=== PATIENT | male | born 1930 | race Caucasian/White ===

== ENCOUNTER 2016-10-31 10:50 | Emergency (ER) | payer OTHER ==
--- NOTE | 2016-10-31 11:12 | EDPHY ---
H & P Stated Complaint: "Bubble" on LLE x 6 days;now has pain and infection Time Seen by Provider: 10/31/16 11:11 HPI/ROS: CHIEF COMPLAINT: Blistering erythema to left leg HISTORY OF PRESENT ILLNESS: The patient presents to the ED with progressive blistering erythema to his left leg. The patient has a history of chronic stasis dermatitis following vascular surgery several years ago. The patient does have a history of a superficial ulcer requiring antibiotic treatment he in the past. The patient denies any history of fall or trauma. The patient denies chest pain, dyspnea, fever or other concerns. The patient did see his primary care provider several days ago. Patient is scheduled to see Infectious Disease again is Saturday. Given the progression of the erythema over the past 24 hours the patient decided to seek medical care today. REVIEW OF SYSTEMS: A comprehensive 10 point review of systems is otherwise negative aside from elements mentioned in the history of present illness. Source: Patient Exam Limitations: No limitations - Personal History Current Tetanus Diphtheria and Acellular Pertussis (TDAP): Yes Tetanus Vaccine Date: 2009 - Medical/Surgical History Hx Asthma: No Hx Chronic Respiratory Disease: No Hx Diabetes: No Hx Cardiac Disease: No Hx Renal Disease: No Hx Cirrhosis: No Hx Alcoholism: No Hx HIV/AIDS: No Hx Splenectomy or Spleen Trauma: No Other PMH: Aneurysm repair, small bowel blockage. hospitalized for unknown origin. Prostate. 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 - Social History Smoking Status: Former smoker - Physical Exam Exam: General Appearance: Alert, no distress Eyes: Pupils equal and round no pallor or injection ENT, Mouth: Mucous membranes moist Respiratory: There are no retractions, lungs are clear to auscultation Cardiovascular: Regular rate and rhythm Gastrointestinal: Abdomen is soft and nontender, no masses, bowel sounds normal Neurological: A&O, normal motor function, normal sensory exam, normal cranial nerves Skin: Warm and dry, no rashes Musculoskeletal: Neck is supple nontender Extremities: Bilateral lower extremity edema, erythema noted to the left calf, several blistering lesions noted to the anterior aspect of the calf Psychiatric: Patient is oriented X 3, there is no agitation Constitutional: Initial Vital Signs Temperature (C) 36.7 C 10/31/16 10:51 Heart Rate 60 10/31/16 10:51 Respiratory Rate 18 10/31/16 10:51 Blood Pressure 145/59 H 10/31/16 10:51 O2 Sat (%) 90 L 10/31/16 10:51 O2 Delivery Mode Room Air Allergies/Adverse Reactions: No Known Allergies Allergy (Verified 10/31/16 10:56) Home Medications: Medication Instructions Recorded Atorvastatin Calcium [Lipitor 40 40 mg PO 10/31/16 mg (*)] Cephalexin [Keflex] 500 mg PO QID #28 cap 10/31/16 Clopidogrel Bisulfate [Plavix (*)] 10/31/16 Doxazosin Mesylate [Cardura 4 MG 4 mg PO DAILY 10/31/16 (*)] Medical Decision Making - Diagnostics Imaging: Left lower extremity ultrasound: Negative for DVT, localized fluid collection or other acute finding. Images reviewed by myself and discussed with radiologist. ED Course/Re-evaluation: The patient presents to the ED with findings consistent with a streptococcal cellulitis involving the lower extremity. The patient has no evidence of sepsis , fever or significant leukocytosis. Ultrasound of lower extremity demonstrates no evidence of a DVT. The patient did have an IV established and received 1 g of IV ceftriaxone. Curbside consultation was made with Dr. Ronda Blanchard from Infectious Disease. The patient will be discharged home with a prescription for Keflex and follow up with Dr. Jamie Stanton as scheduled this Saturday. The patient understands to return to the ED for markedly worsening symptoms, high fever, lightheadedness or other concerns. Differential Diagnosis: Differential diagnosis considered includes cellulitis, DVT, necrotizing fasciitis, abscess - Data Points Laboratory Results: Laboratory Results 10/31/16 11:24 10/31/16 11:24 10/31/16 10/31/16 11:24 11:24 WBC 8.05 10^3/uL 10^3/uL (3.80-9.50) RBC 5.09 10^6/uL 10^6/uL (4.40-6.38) Hgb 16.0 g/dL g/dL (13.7-17.5) Hct 47.5 % % (40.0-51.0) MCV 93.3 fL fL (81.5-99.8) MCH 31.4 pg pg (27.9-34.1) MCHC 33.7 g/dL g/dL (32.4-36.7) RDW 13.2 % % (11.5-15.2) Plt Count 184 10^3/uL 10^3/uL (150-400) MPV 10.4 fL fL (8.7-11.7) Neut % (Auto) 66.9 % % (39.3-74.2) Lymph % (Auto) 14.7 % L % (15.0-45.0) [place] % (Auto) 13.5 % H % (4.5-13.0) Eos % (Auto) 3.9 % % (0.6-7.6) Baso % (Auto) 0.6 % % (0.3-1.7) Nucleat RBC Rel Count 0.0 % % (0.0-0.2) Absolute Neuts (auto) 5.39 10^3/uL 10^3/uL (1.70-6.50) Absolute Lymphs (auto) 1.18 10^3/uL 10^3/uL (1.00-3.00) Absolute Monos (auto) 1.09 10^3/uL H 10^3/uL (0.30-0.80) Absolute Eos (auto) 0.31 10^3/uL 10^3/uL (0.03-0.40) Absolute Basos (auto) 0.05 10^3/uL 10^3/uL (0.02-0.10) Absolute Nucleated RBC 0.00 10^3/uL 10^3/uL (0-0.01) Immature Gran % 0.4 % % (0.0-1.1) Immature Gran # 0.03 10^3/uL 10^3/uL (0.00-0.10) Sodium 139 mEq/L mEq/L (134-144) Potassium 4.3 mEq/L mEq/L (3.5-5.2) Chloride 106 mEq/L mEq/L (97-110) Carbon Dioxide 27 mEq/l mEq/l (22-31) Anion Gap 6 mEq/L L mEq/L (8-16) BUN 20 mg/dL mg/dL (7-23) Creatinine 0.9 mg/dL mg/dL (0.7-1.3) Estimated GFR > 60 Glucose 150 mg/dL H mg/dL (70-100) Calcium 9.0 mg/dL mg/dL (8.5-10.4) Departure - Departure Disposition: Home, Routine, Self-Care Clinical Impression: Left leg cellulitis Condition: Good Instructions: Cellulitis (ED) Additional Instructions: 1. Please take antibiotics as directed for next week. 2. Please follow up with infectious disease as scheduled on Saturday. 3. Please return to the ED for markedly worsening symptoms or other concerns. Referrals: Lilo Peralta MD [Primary Care Provider] - As per Instructions
[2016-10-31 11:40] LABS: % IMMATURE GRANULYOCYTES 0.4 % (0.0-1.1); ABSOLUTE IMMATURE GRANULOCYTES 0.03 10^3/uL (0.00-0.10); ADD DIFF? NO; ADD MORPH? NO; ADD SCAN? NO; ATYPICAL LYMPHOCYTE FLAG 10 (0-99); FRAGMENT RBC FLAG 0 (0-99); HEMATOCRIT 47.5 % (40.0-51.0); LEFT SHIFT FLG 0 (0-99); LIPEMIA HEMOLYSIS FLAG 80 (0-99); MEAN CELL HEMOGLOBIN 31.4 pg (27.9-34.1); MEAN CELL HEMOGLOBIN CONCENTR. 33.7 g/dL (32.4-36.7); MEAN CELL VOLUME 93.3 fL (81.5-99.8); MEAN PLATELET VOLUME 10.4 fL (8.7-11.7); PLATELET CLUMPS FLAG 0 (0-99); PLATELET COUNT 184 10^3/uL (150-400); RED BLOOD CELL COUNT 5.09 10^6/uL (4.40-6.38); RED CELL DISTRIBUTION WIDTH 13.2 % (11.5-15.2)
[2016-10-31 12:06] LABS: ANION GAP 6 mEq/L (8-16); CARBON DIOXIDE 27 mEq/l (22-31); CHLORIDE 106 mEq/L (97-110); CREATININE 0.9 mg/dL (0.7-1.3); GLOMERULAR FILTRATION RATE > 60; GLUCOSE 150 mg/dL (70-100); POTASSIUM 4.3 mEq/L (3.5-5.2); SODIUM 139 mEq/L (134-144)
[2016-10-31] MEDS ORDERED: IBUPROFEN 600 MG TAB PO ONE (12:49)
[2016-10-31 13:00] VITALS: BP 130/78; PULSE 78; RESP 14; TEMP 98.2; O2SAT 94
== END 2016-10-31 12:59 | disposition home or self-care (01) ==
DX: L03.116 Cellulitis of left lower limb (principal); Z87.891 Personal history of nicotine dependence
CPT/HCPCS: 96365; J0696

== ENCOUNTER → 2017-04-04 | Outpatient (CLI) | payer OTHER ==
[~2017-04-04] MED LIST: IOPAMIDOL (ISOVUE 370) 100 ML BTL IV ONE
== END ==
LOC: CIMAGING 08:19
PROVIDERS: ATTEND Internal Medicine Cardiovascular Disease
CPT/HCPCS: 71275-PO; 74175-PO; Q9967

== ENCOUNTER 2017-07-19 14:10 | Inpatient (IN) | payer OTHER ==
--- NOTE | 2017-07-19 14:17 | EDPHY ---
H & P Time Seen by Provider: 07/19/17 14:16 - Personal History Tetanus Vaccine Date: 2009 - Medical/Surgical History Hx Asthma: No Hx Chronic Respiratory Disease: No Hx Diabetes: No Hx Cardiac Disease: No Hx Renal Disease: No Hx Cirrhosis: No Hx Alcoholism: No Hx HIV/AIDS: No Hx Splenectomy or Spleen Trauma: No Other PMH: Aneurysm repair, small bowel blockage. hospitalized for unknown origin. Prostate. 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 - Social History Smoking Status: Former smoker Constitutional: Initial Vital Signs Temperature (C) 36.5 C 07/19/17 14:10 Heart Rate 35 L 07/19/17 14:10 Respiratory Rate 12 07/19/17 14:10 Blood Pressure 210/90 H 07/19/17 14:10 O2 Sat (%) 96 07/19/17 14:10 O2 Delivery Mode Room Air O2 (L/minute) 2 Allergies/Adverse Reactions: No Known Allergies Allergy (Verified 10/31/16 10:56) Home Medications: Medication Instructions Recorded Atorvastatin Calcium [Lipitor 40 40 mg PO 10/31/16 mg (*)] Doxazosin Mesylate [Cardura 4 MG 4 mg PO DAILY 10/31/16 (*)] Acetaminophen [Tylenol 325mg (*)] 325 mg PO Q6 PRN 07/19/17 Aspirin EC [Aspirin EC 81 mg (*)] 81 mg PO HS 07/19/17 Bisacodyl [Dulcolax] 5 mg PO DAILY 07/19/17 Cholecalciferol Vit D3 [Vitamin D3 5,000 units PO DAILY 07/19/17 (*)] Medical Decision Making ED Course/Re-evaluation: CHIEF COMPLAINT: Bradycardia, lethargy HISTORY OF PRESENT ILLNESS: The patient is an 87 y/o male arriving via EMS arriving from [facility] with bradycardia around 30 and fatigue for the last 10 days. He has noticed increased lethargy and dyspnea when walking up stairs. He has never had these symptoms previously. He denies lightheadedness, confusion , headache, chest pain, fever, or other complaints. REVIEW OF SYSTEMS: A 10 point review of systems was performed and is negative with the exception of the elements mentioned in the history of present illness. PHYSICAL EXAM: HR, BP, O2 Sat, RR. Temp noted General Appearance: Alert, well hydrated, appropriate, and non-toxic appearing. Head: Atraumatic without scalp tenderness or obvious injury Eyes: Pupils equal, round, reactive to light and accommodation, EOMI, no trauma , no injection. Nose: Atraumatic, no rhinorrhea, clear. Throat: Mucus membranes moist. Neck: Supple, nontender, no lymphadenopathy. Respiratory: No retractions, no distress, no wheezes, and no accessory muscle use. Lungs are clear to auscultation bilaterally. Cardiovascular: Bradycardic rate and rhythm, no murmurs, rubs, or gallops. Good capillary refill all extremities. Gastrointestinal: Abdomen is soft, nontender, non-distended, no masses, no rebound, no guarding, no peritoneal signs. Musculoskeletal: Normal active ROM of all extremities, atraumatic. Neurological: Alert, appropriate, and interactive. The patient has non-focal cranial nerves, motor, sensory, and cerebellar exam. Skin: No rashes, good turgor, no nodules on palpation. 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 See hard copy and/or "tracemaster" electronic copy for interpretation. DIFFERENTIAL DIAGNOSIS: The differential diagnosis for the patient's lethargy included but was not limited to heart block, junctional escape rhythm, myocardial infarction, conduction abnormality, sick sinus syndrome, AV chaz conduction abnormalities, myocarditis, pericarditis. MEDICAL DECISION MAKING: This is an 87 y/o male who presents with notable bradycardia around 30 and a 10- day history of fatigue and lethargy. He is stable upon arrival here and mentating appropriately. Pacer pads placed. Plan for IV, labs, EKG, and admission. Consulted with Dr. Rao. He will follow patient's admission. Patient remains hemodynamically stable. - Data Points Laboratory Results: Laboratory Results 07/19/17 14:20 07/19/17 14:20 07/19/17 07/19/17 07/19/17 14:20 14:20 14:20 WBC RBC Hgb POC Hgb 15.3 gm/dL gm/dL (13.7-17.5) Hct POC Hct 45 % % (40-51) MCV MCH MCHC RDW Plt Count MPV Neut % (Auto) Lymph % (Auto) [place] % (Auto) Eos % (Auto) Baso % (Auto) Nucleat RBC Rel Count Absolute Neuts (auto) Absolute Lymphs (auto) Absolute Monos (auto) Absolute Eos (auto) Absolute Basos (auto) Absolute Nucleated RBC Immature Gran % Immature Gran # PT 15.4 SEC H SEC (12.0-15.0) INR 1.22 H (0.83-1.16) APTT 29.8 SEC SEC (23.0-38.0) POC Sodium 142 mEq/L mEq/L (134-144) Sodium 142 mEq/L mEq/L (134-144) POC Potassium 4.9 mEq/L mEq/L (3.3-5.0) Potassium 5.2 mEq/L mEq/L (3.5-5.2) POC Chloride 107 mEq/L mEq/L (97-110) Chloride 106 mEq/L mEq/L (97-110) Carbon Dioxide 24 mEq/l mEq/l (22-31) Anion Gap 12 mEq/L mEq/L (8-16) POC BUN 33 mg/dL H mg/dL (7-23) BUN 34 mg/dL H mg/dL (7-23) Creatinine 1.4 mg/dL H mg/dL (0.7-1.3) POC Creatinine 1.7 mg/dL H mg/dL (0.7-1.3) Estimated GFR 48 Glucose 83 mg/dL mg/dL (70-100) POC Glucose 89 mg/dL mg/dL (70-100) Calcium 9.0 mg/dL mg/dL (8.5-10.4) Magnesium 2.4 mg/dL H mg/dL (1.6-2.3) Troponin I 0.026 ng/mL ng/mL (0.000-0.034) NT-Pro-B Natriuret Pep 2690 pg/mL H pg/mL (0-450) 07/19/17 14:20 WBC 7.32 10^3/uL 10^3/uL (3.80-9.50) RBC 4.79 10^6/uL 10^6/uL (4.40-6.38) Hgb 15.1 g/dL g/dL (13.7-17.5) POC Hgb Hct 44.9 % % (40.0-51.0) POC Hct MCV 93.7 fL fL (81.5-99.8) MCH 31.5 pg pg (27.9-34.1) MCHC 33.6 g/dL g/dL (32.4-36.7) RDW 13.9 % % (11.5-15.2) Plt Count 141 10^3/uL L 10^3/uL (150-400) MPV 11.7 fL fL (8.7-11.7) Neut % (Auto) 60.8 % % (39.3-74.2) Lymph % (Auto) 17.5 % % (15.0-45.0) [place] % (Auto) 17.1 % H % (4.5-13.0) Eos % (Auto) 3.8 % % (0.6-7.6) Baso % (Auto) 0.5 % % (0.3-1.7) Nucleat RBC Rel Count 0.0 % % (0.0-0.2) Absolute Neuts (auto) 4.45 10^3/uL 10^3/uL (1.70-6.50) Absolute Lymphs (auto) 1.28 10^3/uL 10^3/uL (1.00-3.00) Absolute Monos (auto) 1.25 10^3/uL H 10^3/uL (0.30-0.80) Absolute Eos (auto) 0.28 10^3/uL 10^3/uL (0.03-0.40) Absolute Basos (auto) 0.04 10^3/uL 10^3/uL (0.02-0.10) Absolute Nucleated RBC 0.00 10^3/uL 10^3/uL (0-0.01) Immature Gran % 0.3 % % (0.0-1.1) Immature Gran # 0.02 10^3/uL 10^3/uL (0.00-0.10) PT INR APTT POC Sodium Sodium POC Potassium Potassium POC Chloride Chloride Carbon Dioxide Anion Gap POC BUN BUN Creatinine POC Creatinine Estimated GFR Glucose POC Glucose Calcium Magnesium Troponin I NT-Pro-B Natriuret Pep Point of Care Test Results: 07/19/17 14:20 POC Sodium 142 POC Potassium 4.9 POC Chloride 107 POC BUN 33 H POC Creatinine 1.7 H POC Glucose 89 Departure - Departure Disposition: Home, Routine, Self-Care Referrals: Lilo Peralta MD [Primary Care Provider] - As per Instructions Report Scribed for: Jamie May Report Scribed by: Bridget Dolan Date of Report: 07/19/17 Time of Report: 14:21
--- NOTE | 2017-07-19 14:23 | CPEKG ---
Heart Rate: 27 RR Interval: 2222 QRSD Interval: 134 QT Interval: 620 QTC Interval: 416 QRS [place]: -44 T Wave [place]: 28 EKG Severity - ABNORMAL ECG - EKG Impression: JUNCTIONAL ESCAPE RHYTHM EKG Impression: RBBB AND LAFB Electronically Signed By: Jamie May 20-Jul-2017 21:55:13
[2017-07-19 14:33] LABS: % IMMATURE GRANULYOCYTES 0.3 % (0.0-1.1); ABSOLUTE IMMATURE GRANULOCYTES 0.02 10^3/uL (0.00-0.10); ADD DIFF? NO; ADD MORPH? NO; ADD SCAN? NO; ATYPICAL LYMPHOCYTE FLAG 0 (0-99); FRAGMENT RBC FLAG 0 (0-99); HEMATOCRIT 44.9 % (40.0-51.0); HEMOGLOBIN 15.1 g/dL (13.7-17.5); LEFT SHIFT FLG 0 (0-99); LIPEMIA HEMOLYSIS FLAG 80 (0-99); MEAN CELL HEMOGLOBIN 31.5 pg (27.9-34.1); MEAN CELL HEMOGLOBIN CONCENTR. 33.6 g/dL (32.4-36.7); MEAN CELL VOLUME 93.7 fL (81.5-99.8); MEAN PLATELET VOLUME 11.7 fL (8.7-11.7); PLATELET CLUMPS FLAG 10 (0-99); PLATELET COUNT 141 10^3/uL (150-400); RED BLOOD CELL COUNT 4.79 10^6/uL (4.40-6.38); RED CELL DISTRIBUTION WIDTH 13.9 % (11.5-15.2)
[2017-07-19 14:41] LABS: APTT 29.8 SEC (23.0-38.0); INR 1.22 (0.83-1.16); PROTIME(PATIENT) 15.4 SEC (12.0-15.0)
[2017-07-19 14:51] LABS: ANION GAP 12 mEq/L (8-16); CARBON DIOXIDE 24 mEq/l (22-31); CHLORIDE 106 mEq/L (97-110); CREATININE 1.4 mg/dL (0.7-1.3); GLOMERULAR FILTRATION RATE 48; GLUCOSE 83 mg/dL (70-100); MAGNESIUM 2.4 mg/dL (1.6-2.3); POTASSIUM 5.2 mEq/L (3.5-5.2); SODIUM 142 mEq/L (134-144)
[2017-07-19 15:01] LABS: TROPONIN I 0.026 ng/mL (0.000-0.034)
[2017-07-19] MEDS ORDERED: ONDANSETRON 4 MG/2 ML VIAL IVP PRN (15:17)
[2017-07-19] MEDS ORDERED: ONDANSETRON DISINTEGRATING 4 MG TAB PO PRN (15:17)
[2017-07-19] MEDS ORDERED: BACITRACIN IRRIGATION/NS 50,000 UNITS/1,000 ML BTL IRR ONE ×2 (15:40→15:41)
[2017-07-19] MEDS ORDERED: ceFAZolin 2 GM/SWFI 2 GM/20 ML SYR IVP ONE ×2 (15:40→15:41)
[2017-07-19] MEDS ORDERED: NS 1,000 ML IV ONE ×2 (15:40→15:41)
--- NOTE | 2017-07-19 16:07 | GHP ---
[f rep st] HISTORY AND PHYSICAL DATE OF ADMISSION: 07/19/2017 HISTORY OF PRESENT ILLNESS: The patient is a pleasant 87-year-old gentleman with a history of hypert ension, and BPH, as well as some lower extremity wounds, who presents with 10 days of lethargy, and g eneralized weakness, and lightheadedness. His has noted some increased lower extremity edema. He was actually seen in our cardiology clinic and referred here, as an EKG showed complete heart bloc k. The patient has not had falls. He has not had chest pain, fever, chills, sputum. He has been followed in the wound clinic for his lower extremity wounds, which have healed nicely. Timothy barone has not had fever. REVIEW OF SYSTEMS: A complete 10-point review of systems conducted and negative except as noted in t he HPI. PAST MEDICAL HISTORY: 1. Hypertension. 2. BPH. 3. Possible sick sinus syndrome. 4. Abdominal aortic aneurysm. 5. Status post endoluminal graft. 6. Hyperlipidemia. ALLERGIES: No known drug allergies. HOME MEDICATIONS: Atorvastatin, doxazosin, Dulcolax, aspirin. SOCIAL HISTORY: No tobacco, no alcohol. 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 PHYSICAL EXAMINATION: VITAL SIGNS: Temp 36.5, blood pressure 210/90, pulse 26 to 35, breathing 12 t imes a minute, 96% on 2 L. GENERAL: In no acute distress. HEENT: Sclerae anicteric. Oropharynx c lear. Mucous membranes moist. NECK: Supple without lymphadenopathy or JVD. LUNGS: Clear to auscu ltation bilaterally. HEART: S1, S2, profoundly bradycardic. There is no systolic murmur. ABDOMEN: Soft, nontender, nondistended. LOWER EXTREMITIES: Show 3+ edema bilaterally. Calves are nontende r. SKIN: Shows his wound is essentially healed on his right anterior carrington. There is no lymphangitic streaking . NEUROLOGIC: Nonfocal. The patient is a bit confused, I have taken care of him on previous admiss ions, but he certainly mentating, alert and conversant. LABS: His white count is 7.3, hematocrit 45, platelets are 141,000. INR is 1.2. Sodium 142, potass ium 5.2, chloride 106, bicarb 24, BUN 34, creatinine 1.4. His baseline is 0.9. Troponin is 0.026. Magnesium is elevated at 2.4. BNP is 2690, this is higher, his baseline is about 1000. EKG, interpreted by me, shows complete heart block with a ventricular rate of 27. There is normal ax is. There is no ST or T-wave changes. I discussed the case Dr. Bertrand Rao, and Dr. Jamie May. ASSESSMENT/PLAN: An 87-year-old gentleman with complete heart block. 1. Complete heart block. Patient warrants a pacer, he is currently hemodynamically stable, is plann ed at 6:30. 2. Anterior carrington wound. This does not look infected, it looks healed, this is not a contraindicatio n to pacer placement. 3. Abdominal aortic aneurysm. We will follow. 4. Hypertension, this is likely response to his complete heart block. 5. Acute kidney injury, this is secondary to poor cardiac output. We will follow. 6. Disposition: Inpatient status. 7. Prophylaxis: We will use SCDs for now, given his need for pacer placement. /[id number]/MODL
[2017-07-19] MEDS ORDERED: IOPAMIDOL (ISOVUE-300) 100 ML BTL ONE (16:10)
[2017-07-19] MEDS ORDERED: LIDOCAINE 1% 300 MG/30 ML SDV ONE (17:50)
[2017-07-19] MEDS ORDERED: fentaNYL 100 MCG/2 ML INJ ONE (17:50)
[2017-07-19] MEDS ORDERED: MIDAZOLAM 2 MG/2 ML VIAL ONE (17:50)
[2017-07-19] MEDS ORDERED: BUPIVACAINE 0.5% 30 ML SDV ONE (17:51)
[2017-07-19] MEDS ORDERED: LIDO/EPI 1% **for epidural** 30 ML SDV ONE (17:51)
--- NOTE | 2017-07-19 17:52 | PDMN ---
Medical Necessity Medical necessity: M510 supraventricular arrhythmias -arrhythmias causing sig. symptoms -bradycardia HR 35,26,34, 38 EKG shows complete heart block, ... lethargy, weakness, lightheadedness, lower extremity edema, hx of HTN, BPH, poss. SSS, AAA, S/P endoluminal graft. hyperlipidemia
--- NOTE | 2017-07-19 18:03 | PDPROPOC ---
Sedation Plan of Care Sedation Plan of Care: vital signs stable, mental status noted, patient educated of risks, benefits, alternatives, patient can tolerate sedation ASA Classification: ASA 2 Mallampati Score: Class 2 Mallampati Reference Image: Patient passed 3-3-2 rule?: Yes
--- NOTE | 2017-07-19 18:03 | PDHPUP ---
History & Physical Update H&P update statement: This history and physical update is based on an assessment of the patient which was completed after admission or registration (within 24 hours), but prior to the surgery/procedure. H&P update: H&P reviewed & patient examined, no change in patient's condition since H&P completed (Risks and benfits discussed. Will proceed.)
--- NOTE | 2017-07-19 19:09 | PDCTREPORT ---
Cardiothoracic Procedure Rpt Cardiothoracic Procedure Report: Procedure: Insertion of a dual-chamber permanent pacemaker. MRI compatible due to need for yearly MRIs for endo grafts. Indication: Complete heart block symptomatic with ventricular escape of 25 beats per minute. After obtaining informed consent patient was brought to the cardiac catheterization lab in the fasting state. The left subclavian fossa was sterilely prepped and draped. Subclavian venogram was performed revealing a widely patent vein. Using a 10 blade an incision was made below the clavicle. Using a combination of sharp and blunt dissection and the Bovie catheter pacemaker pocket was created. Bacitracin soaked sponge was placed in the pocket. Using 18 gauge percutaneous needle guidewires were advanced into the right heart x2. Using an 8 [place] safety sheath lead was placed in the right ventricular apex. The sheath was torn away. Appropriate sensitivities and thresholds were confirmed. The lead was secured to the fascia using 0 Ethibond x2. Using a 6 [place] safety sheath lead was advanced into the right atrial appendage. Sheath was torn away. Appropriate sensitivities and thresholds were confirmed. The lead was secured to the fascia using 0 Ethibond x2. Bacitracin soaked sponge was removed from the pocket. The pocket was copiously irrigated with bacitracin solution. The generator was delivered to the field. Leads were attached to the generator confirming serial numbers. Setscrews were tightened per industry standards. The entire system was coiled into the pocket and checked under fluoroscopy. 3 layer closure was performed using 2 0 and 3 0 Ethibond. Strata Fix suture was used to close the skin. Pressure dressing was applied the patient is taken to recovery for continued care. Underlying rhythm: Third-degree heart block with AV dissociation. The device is an [employer]ipping model number p.m. 2272. Serial 7. [id number]. Right atrial lead is a tendril MRI L PDA 1200M/46. Serial number [id number] Ventricular lead is a tendril MRI LPA 1200M/52. Serial number [id number] Right atrial sensing was 2.7 mV. Atrial capture was 0.4 volts at 0.5 milliseconds. Impedance was 472 Ohms. Right ventricular sensing was not performed due to lack of QRS complexes. Capture was at 0.5 volts at 0.5 milliseconds. Impedance was 658 Ohms. There was no phrenic nerve stimulation at 10 volts. Conclusions: Complete heart block status post implantation of a dual-chamber MRI compatible pacemaker. Patient Problems: Problems Problem Status Onset Complete heart block Acute Urinary tract infectious disease Active
[2017-07-19] MEDS ORDERED: METOPROLOL TARTRATE 5 MG/5 ML INJ ONE (19:13)
[2017-07-19] MEDS: amLODIPine BESYLATE 5 MG TAB PO SCH (20:44)
--- NOTE | 2017-07-19 20:53 | CPEKG ---
Heart Rate: 60 RR Interval: 1000 P-R Interval: 172 QRSD Interval: 158 QT Interval: 492 QTC Interval: 492 P [place]: 38 QRS [place]: -72 T Wave [place]: 86 EKG Severity - ABNORMAL ECG - EKG Impression: ATRIAL-VENTRICULAR DUAL-PACED RHYTHM Electronically Signed By: Jose Suarez 20-Jul-2017 10:16:35
[2017-07-20 05:06] LABS: % IMMATURE GRANULYOCYTES 0.3 % (0.0-1.1); ABSOLUTE IMMATURE GRANULOCYTES 0.03 10^3/uL (0.00-0.10); ADD DIFF? NO; ADD MORPH? NO; ADD SCAN? NO; ATYPICAL LYMPHOCYTE FLAG 0 (0-99); FRAGMENT RBC FLAG 0 (0-99); HEMATOCRIT 42.9 % (40.0-51.0); HEMOGLOBIN 14.5 g/dL (13.7-17.5); LEFT SHIFT FLG 0 (0-99); LIPEMIA HEMOLYSIS FLAG 90 (0-99); MEAN CELL HEMOGLOBIN 31.6 pg (27.9-34.1); MEAN CELL HEMOGLOBIN CONCENTR. 33.8 g/dL (32.4-36.7); MEAN CELL VOLUME 93.5 fL (81.5-99.8); MEAN PLATELET VOLUME 11.7 fL (8.7-11.7); PLATELET CLUMPS FLAG 0 (0-99); PLATELET COUNT 132 10^3/uL (150-400); RED BLOOD CELL COUNT 4.59 10^6/uL (4.40-6.38); RED CELL DISTRIBUTION WIDTH 13.8 % (11.5-15.2)
[2017-07-20] MEDS: ACETAMINOPHEN 325 MG TAB PO PRN ×2 (05:06→20:24)
[2017-07-20 06:19] LABS: ANION GAP 7 mEq/L (8-16); CALCIUM 8.3 mg/dL (8.5-10.4); CARBON DIOXIDE 23 mEq/l (22-31); CHLORIDE 109 mEq/L (97-110); CREATININE 1.1 mg/dL (0.7-1.3); GLOMERULAR FILTRATION RATE > 60; GLUCOSE 88 mg/dL (70-100); POTASSIUM 4.4 mEq/L (3.5-5.2); SODIUM 139 mEq/L (134-144)
[2017-07-20] MEDS: CHOLECALCIFEROL VIT D3 2,000 UNITS TAB/CAP PO SCH (07:59)
[2017-07-20] MEDS: amLODIPine BESYLATE 5 MG TAB PO SCH ×2 (08:00→08:01)
[2017-07-20] MEDS: ATORVASTATIN CALCIUM 40 MG TAB PO SCH (08:01)
[2017-07-20] MEDS: DOXAZOSIN MESYLATE 4 MG TAB PO SCH (08:01)
[2017-07-20] MEDS: BISACODYL 5 MG EC TAB PO SCH (08:07)
--- NOTE | 2017-07-20 09:40 | CPEKG ---
Heart Rate: 60 RR Interval: 1000 P-R Interval: 204 QRSD Interval: 156 QT Interval: 492 QTC Interval: 492 P [place]: 0 QRS [place]: -72 T Wave [place]: 94 EKG Severity - ABNORMAL ECG - EKG Impression: Paced heart rhythm Electronically Signed By: Jose Suarez 20-Jul-2017 10:16:30
--- NOTE | 2017-07-20 09:44 | ASMTCASEMG ---
Living Arrangements What is your living Answers: With Spouse arrangement? Who do you live with? Type Of Residence What kind of residence do Answers: House you live in? Discharge Plan Comments Coordination Status Comments Notes: Pt is a 87 y/o man admitted w/ generalized weakness, lightheadedness and lower extremity edema. Pt is day 1 post op from having a pacemaker placed. PT and OT have been ordered and awaiting recommendations. Needs are TBD at this time. CM to follow. Date Signed: 07/20/2017 09:44 AM Electronically Signed By:IRENE Sauceda
[2017-07-20] MEDS ORDERED: FUROSEMIDE 40 MG/4 ML VIAL IVP ONE (10:32)
--- NOTE | 2017-07-20 10:45 | PDCARPN ---
Cardiology Progress Note Chief Complaint: CHB Assessment/Plan: Assessment: 87 y/o M PMH AAA s/p repair 2002, listed h/o TIA, htn, dyslipidemia. Admitted from clinic after being found to be in CHB HR 28. 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 #. CHB: s/p dual chamber ppm #. CHF: as evidenced by severe peripheral edema, small bilateral pleural effusions, abdominal distention symptomatically was able to bike up until 1 week ago and now cannot climb stairs in home without dyspnea likely worsened by loss of cardiac output with CHB will obtain echo and start on IV lasix #. AAA: remote s/p repair continue statin and ASA #. LOS: admit to inpt status due to need to start IV lasix will obtain PT/OT for home needs/safety #. DVT ppx: defer chemoprophylaxis with recent pacer will order compressive stockings today Plan: Echo IV lasix 07/20/17 10:35 Subjective: Insertion of PPM 07/19 after presenting to office LH and HR 28 with CHB. Not noting pain at pacer site. Has noted at least 1 week of worsening dyspnea with decrease in exercise tolerance. Did have LLE wound that has healed with wound clinic. Was advised to start wearing compressive stockings. No cp, pnd/ orthopnea. Reviewed/Discussed With: family, other (Dr. Ramirez) Objective: Vital Signs (8 Hrs) Temp Pulse Resp BP Pulse Ox 07/20/17 08:01 152/56 H 07/20/17 08:00 152/56 H 07/20/17 07:51 98.2 F 60 27 H 152/56 H 93 07/20/17 05:00 60 20 148/64 H 96 Intake/Output (24 Hrs) 07/19/17 07/20/17 07/21/17 05:59 05:59 05:59 Intake Total 400 Output Total 600 Balance -200 Intake: Oral (ml) 200 IV Intake (ml) 200 Output: Urine (ml) 600 Urinal 600 Other: Weight 88.451 kg 88.451 kg Number of Voids Urinal 1 Number of Stools Urinal 1 Result Diagrams: 07/20/17 04:50 07/20/17 04:56 Cardiac Labs: Laboratory Tests 07/19/17 14:20 NT-Pro-B Natriuret Pep 2690 H EKG: V-paced rhythm Telemetry: Paced Echocardiogram: Last echo from 03/23 from office reviewed: EF 60, DD, mild AR/TR, RVSP 35 - Physical Exam Constitutional: no apparent distress Eyes: anicteric sclera Ears, Nose, Mouth, Throat: moist mucous membranes Cardiovascular: regular rate and rhythm Respiratory: reduced air movement, other (crackles in bases) Gastrointestinal: normoactive bowel sounds, other (distended) Skin: warm, other (severe edema bilateral legs and L hand) Neurologic: AAOx3 Psychiatric: cooperative, interactive ICD10 Worksheet Patient Problems: Problems Problem Status Onset Complete heart block Acute Urinary tract infectious disease Active
--- NOTE | 2017-07-20 12:05 | HOSPPROG ---
Hospitalist Progress Note Assessment/Plan: New patient encounter 87 y/o M PMH AAA s/p repair 2002, TIA, htn, dyslipidemia. Admitted from clinic with CHB, now s/p pacemaker. He has e/o of CHF exacerbation and has been started on IV Lasix. # CHB: s/p dual chamber ppm # CHF-E -TTE -IV Lasix #HTN #AAA, s/p endoluminal graft -Statin -ASA #RAMONA, resolved #weakness and deconditioning -PT/OT DVT proph: SCD's Dispo: keep inpatient Subjective: Has significant pedal edema. S/p PPM. Doing well postoperatively. Objective: Vital Signs Temp Pulse Resp BP Pulse Ox 36.4 C 60 19 131/61 H 91 L 07/20/17 11:48 07/20/17 11:48 07/20/17 11:48 07/20/17 11:48 07/20/17 11:48 Laboratory Results 07/20/17 04:50 07/20/17 04:56 07/19/17 07/20/17 07/21/17 05:59 05:59 05:59 Intake Total 400 Output Total 600 Balance -200 PT 15.4 SEC (12.0-15.0) H 07/19/17 14:20 INR 1.22 (0.83-1.16) H 07/19/17 14:20 - Physical Exam Constitutional: no apparent distress, appears nourished Eyes: PERRL Ears, Nose, Mouth, Throat: moist mucous membranes, hearing normal Cardiovascular: regular rate and rhythym, edema Respiratory: no respiratory distress Gastrointestinal: normoactive bowel sounds, soft, non-tender abdomen Skin: warm Neurologic: AAOx3 Psychiatric: interacting appropriately, not anxious, not encephalopathic ICD10 Worksheet Patient Problems: Problems Problem Status Onset Complete heart block Acute Urinary tract infectious disease Active
[2017-07-20] MEDS: FUROSEMIDE 40 MG/4 ML VIAL IVP SCH (15:26)
[2017-07-21 05:36] LABS: ANION GAP 10 mEq/L (8-16); CALCIUM 8.3 mg/dL (8.5-10.4); CARBON DIOXIDE 25 mEq/l (22-31); CHLORIDE 105 mEq/L (97-110); GLOMERULAR FILTRATION RATE > 60; GLUCOSE 92 mg/dL (70-100); POTASSIUM 3.9 mEq/L (3.5-5.2); SODIUM 140 mEq/L (134-144)
[2017-07-21] MEDS: ACETAMINOPHEN 325 MG TAB PO PRN ×2 (05:51→21:10)
[2017-07-21] MEDS: BISACODYL 5 MG EC TAB PO SCH (07:52)
[2017-07-21] MEDS: ATORVASTATIN CALCIUM 40 MG TAB PO SCH (07:52)
[2017-07-21] MEDS: CHOLECALCIFEROL VIT D3 2,000 UNITS TAB/CAP PO SCH (07:52)
[2017-07-21] MEDS: FUROSEMIDE 40 MG/4 ML VIAL IVP SCH ×2 (07:53→14:42)
[2017-07-21] MEDS: DOXAZOSIN MESYLATE 4 MG TAB PO SCH (07:53)
[2017-07-21] MEDS: amLODIPine BESYLATE 5 MG TAB PO SCH (07:53)
--- NOTE | 2017-07-21 10:20 | PDCARPN ---
Cardiology Progress Note Assessment/Plan: Assessment/plan: 87-year-old male with history of hypertension, peripheral vascular disease status post remote endovascular repair of abdominal aortic aneurysm admitted from clinic with complete heart block and ventricular response in the 20s. Status post urgent dual-chamber pacemaker placement on July 19. He feels significantly better with pacing and diuresis. He was in diastolic heart failure, likely triggered by bradycardia and AV dyssynchrony. He was also quite hypertensive upon admission. This has improved. 1. Complete heart block: Status post pacemaker. Pacer interrogation and postprocedure chest x-ray showed normal device placement and function. He will be enrolled in our Outpatient device Clinic. Pacemaker precautions reviewed with the patient and his family. 2. Heart failure with preserved ejection fraction: He has had greater than 2 L diuresis overnight with IV Lasix. Continue this today, likely switch to oral tomorrow. This was triggered by his profound bradycardia/AV synchrony, and admission hypertension. 3. Hypertension: Improved with the diuresis. I have stopped his amlodipine and started low-dose beta-blockers, as I think the amlodipine will contribute to his chronic lower extremity edema. Continue diuresis. 4. Vascular disease: History of AAA repair and mild dilation of the ascending aorta. Restart aspirin. Continue statin. On his 2014 echo he did have ascending aortic dilation of 4.1 cm. This was not well visualized on today's echocardiogram. Consider repeat study as an outpatient. 5. Acute kidney injury upon admission. Creatinine has improved from 1.4-1. This was likely due to low cardiac output in the setting of his complete heart block. Follow up closely in the setting of diuresis. This is why I have not chosen an Loki inhibitor for his hypertension. 6. DVT Prophylaxis: He is safe to start prophylactic dose Lovenox. 07/21/17 10:33 Subjective: Bertrand feels much better. He does not have significant discomfort at the site of his pacemaker insertion. No angina. No dyspnea at rest. He was mildly dyspneic after his walk this morning. He was not lightheaded exertion. Lower extremity edema is slightly improved with significant diuresis overnight. Reviewed/Discussed With: family, multidisciplinary team Objective: Vital Signs (8 Hrs) Temp Pulse Resp BP Pulse Ox 07/21/17 07:53 146/53 H 07/21/17 07:10 36.4 C 62 20 146/53 H 92 07/21/17 04:00 60 18 154/64 H 100 Intake/Output (24 Hrs) 07/20/17 07/21/17 07/22/17 05:59 05:59 05:59 Intake Total 400 1670 610 Output Total 600 4105 1400 Balance -200 -2435 -790 Intake: Oral (ml) 200 1520 610 IV Intake (ml) 200 150 Output: Urine (ml) 600 4105 1400 Urinal 600 4105 1400 Other: Weight 88.451 kg 88.451 kg 84.5 kg Number of Voids Urinal 3 Number of Stools Urinal 1 No acute distress. Sitting up in chair JVP 10 cm of water. Regular rate and rhythm without murmur or gallop Lungs clear to auscultation without wheezes rhonchi or rales Left pectoral pacemaker dressing clean dry and intact. Minimal tenderness to palpation. Minimal ecchymosis. No hematoma. Extremities warm and well perfused. 1+ pitting edema to the midshin bilaterally. Stigmata of chronic venous stasis. Neuro alert oriented x3 without gross focal neurologic deficits. Appropriate mood and affect Chest x-ray post pacemaker placement reviewed: Stable dual-chamber pacemaker. Small bilateral pleural effusion Result Diagrams: 07/20/17 04:50 07/21/17 04:47 Telemetry: AV sequential pacing Echocardiogram: Reviewed personally. Compared with 2015 study. Normal LV size and systolic function. No significant valvular disease. ICD10 Worksheet Patient Problems: Problems Problem Status Onset Complete heart block Acute Urinary tract infectious disease Active
[2017-07-21] MEDS: ASPIRIN 81 MG CHEWABLE TAB PO SCH (11:05)
[2017-07-21] MEDS: ENOXAPARIN 40 MG/0.4 ML SYR SC SCH (11:05)
[2017-07-21] MEDS: METOPROLOL TARTRATE 25 MG TAB PO SCH ×2 (11:08→21:10)
--- NOTE | 2017-07-21 12:16 | ECHO ---
[email or web address] [address] [address] Main: [phone] Fax: Transthoracic Echocardiogram Name: CECY POZO MR#: [id number] Study Date: 07/21/2017 Study Time: 08:11 AM Date of : 1930 Age: 87 year(s) Height: 170.2 cm (67 in.) Weight: 88.45 kg (195 lb.) BSA: 2 m2 Gender: Male Examination: Echo Indication: Edema, Cardiac: dyspnea Image Quality: Technically Difficult Contrast: Requested by: Francoise Gerard BP: / Heart Rate: Rhythm: Indication: Edema, Cardiac: dyspnea Procedure Staff Last Model Department Supervisor: Jazmyn Fernandes Reading Physician: Lata Ramirez Requesting Provider: Lata Ramirez Conclusions: Normal size left ventricle. Normal systolic LV function with paradoxic septal motion suggestive of bundle branch block, paced cardiac rhythm, or prior cardiac surgery. . EF is 62 %. Normal size right ventricle. Normal RV function. There is a pacemaker lead noted in the right ventricle. There is mild thickening of the aortic cusps. No aortic valve stenosis is present. Mild tricuspid regurgitation is present. The pulmonary artery pressure is normal. Compared with 2015 study wall motion abnormality associated with pacing is new; pacer is new Measurements: Chambers Valvular Assessment AV/MV Valvular Assessment TV/PV Normal Normal Normal Name Value Range Name Value Range Name Value Range IVSd (2D): 1.1 cm (0.6 cm-1.1 AV meanP mmHg ( - ) TR Vmax: 2.43 mm/s ( - ) cm) LVOT Vmax: 1.20 m/s (0.7 m/s-1.1 TR PGmax: 24 mmHg ( - ) LVDd (2D): 3.5 cm (4.2 cm-5.9 m/s) cm) MV E Vmax: 0.84 m/s ( - ) LVDs (2D): 2.4 cm (2.1 cm-4 MV A Vmax: 1.17 m/s ( - ) cm) MV E/A: 0.72 ( - ) LVPWd (2D): 0.8 cm (0.6 cm-1 cm) LVEF (2D): 62 (>=54 %) Continued Measurements: Valvular Assessment AV/MV Patient: CECY POZO Study Date: 07/21/2017 Page 1 of 2 08:11 AM Name Value MV DecTime: 285 m/s MV E/E' Septal: 18.30 MV E/E' Lateral: 16.20 Findings: Left Ventricle: Normal size left ventricle. Normal systolic LV function with paradoxic septal motion suggestive of bundle branch block, paced cardiac rhythm, or prior cardiac surgery. . EF is 62 %. Right Ventricle: Normal size right ventricle. Normal RV function. There is a pacemaker lead noted in the right ventricle. Left Atrium: The left atrium is normal in size. Right Atrium: The right atrium is normal in size. Mitral Valve: The mitral valve is normal in appearance and function. Mild mitral annular calcification. Trivial mitral valve regurgitation. Aortic Valve: The aortic valve is tri-leaflet and functions normally. There is mild thickening of the aortic cusps. Mild aortic cusp calcification is noted. There is no aortic valve regurgitation. No aortic valve stenosis is present. Tricuspid Valve: The tricuspid valve is normal in appearance and function. Mild tricuspid regurgitation is present. The pulmonary artery pressure is normal. Pulmonic Valve: Pulmonary valve not well visualized. IVC: The IVC is not visualized. Pericardium: No pericardial effusion. Exam Comments: Technically difficult study due to body habitus and restricted mobility.. (No Signature Object) Patient: CECY POZO Study Date: 07/21/2017 Page 2 of 2 08:11 AM [id number]
--- NOTE | 2017-07-21 12:32 | WOCRNPDOC ---
WOCRN Advanced Assessment Note - Skin Integrity Problem, Advanced Assess Left Lower Leg Dressing Type: Open to Air Exudate Amount: None Jesica Wound Tissue: Swollen Site Measurement - Head-to-Toe Length X Width X Depth (cm): [id number] (area of scar tissue/erythema) Peripheral Edema Location & Description: +4 pitting edema on L dorsal foot; +3 pitting on anterior aspect pf LLE Skin Integrity Problem Comment: Large area of irregularly-shaped, discrete, blanching erythema noted over patient's anterior LLE, skin currently intact. Per patient's daughter Shelley, who is a RN at [employer], patient had a wound here previously and [facility]. While he does not have a wound presently, family was concerned about the edema in this leg causing the previous wound to re-open. I measured him for moderate compression stockings (20mmHg), and sent this down for nursing to apply. These Spandagrip stockings will be applied in a.m. and removed at HS. In addition, nursing will apply skin protectant cream to BLE BID, both before and after stockings are removed.
--- NOTE | 2017-07-21 12:44 | HOSPPROG ---
Hospitalist Progress Note Assessment/Plan: 87 y/o M PMH AAA s/p repair 2002, TIA, htn, dyslipidemia. Admitted from clinic with CHB, now s/p pacemaker. He has e/o of CHF exacerbation and has been started on IV Lasix with appropriate diuresis. He is still volume overloaded and IV Lasix is being continued. He can likely be switched to oral diuretics tomorrow. He will be started on potassium replacement. # CHB: s/p dual chamber ppm # CHF-E -TTE c/w diastolic dysfunction, preserved LVEF -IV Lasix -Overall improving #HTN -Amlodipine stopped. Now on Carvedilol. No TYLER-I given recent renal dysfunction. Could consider in the future #AAA, s/p endoluminal graft -Statin -ASA #RAMONA, resolved, Cr now back to 1 #weakness and deconditioning -PT/OT DVT proph: SCD's Dispo: keep inpatient Multiple family members at bedside. Updated with plan of care. All questions and concerns addressed. Subjective: Minimal O2 use. No CP or SOB. Still with pedal edema, improving. Afebrile. Objective: Vital Signs Temp Pulse Resp BP Pulse Ox 36.4 C 60 21 H 123/60 H 96 07/21/17 11:43 07/21/17 11:43 07/21/17 11:43 07/21/17 11:43 07/21/17 11:43 Laboratory Results 07/20/17 04:50 07/21/17 04:47 07/20/17 07/21/17 07/22/17 05:59 05:59 05:59 Intake Total 400 1670 860 Output Total 600 4105 1950 Balance -200 -2435 -1090 PT 15.4 SEC (12.0-15.0) H 07/19/17 14:20 INR 1.22 (0.83-1.16) H 07/19/17 14:20 - Time Spent With Patient Time Spent with Patient: greater than 35 minutes Time Spent with Patient: Greater than 35 minutes spent on this patients care, greater than 50% of time spent counseling, educating, and coordinating care regarding the above mentioned plan. - Physical Exam Constitutional: no apparent distress Eyes: PERRL, EOMI Ears, Nose, Mouth, Throat: moist mucous membranes, hearing normal Cardiovascular: regular rate and rhythym, edema Respiratory: no respiratory distress, reduced air movement Gastrointestinal: normoactive bowel sounds Skin: warm Neurologic: AAOx3 Psychiatric: interacting appropriately, not anxious, not encephalopathic ICD10 Worksheet Patient Problems: Problems Problem Status Onset Complete heart block Acute Urinary tract infectious disease Active
[2017-07-21] MEDS: POTASSIUM CL 20 MEQ/15 ML UDCUP PO SCH (14:42)
[2017-07-21] MEDS ORDERED: POTASSIUM CL 20 MEQ/15 ML UDCUP PO SCH (21:00)
[2017-07-22 05:57] LABS: ANION GAP 8 mEq/L (8-16); CALCIUM 8.5 mg/dL (8.5-10.4); CARBON DIOXIDE 29 mEq/l (22-31); CHLORIDE 104 mEq/L (97-110); GLOMERULAR FILTRATION RATE > 60; GLUCOSE 91 mg/dL (70-100); POTASSIUM 4.2 mEq/L (3.5-5.2); SODIUM 141 mEq/L (134-144)
[2017-07-22] MEDS: BISACODYL 5 MG EC TAB PO SCH (07:54)
[2017-07-22] MEDS: FUROSEMIDE 40 MG/4 ML VIAL IVP SCH (07:54)
[2017-07-22] MEDS: POTASSIUM CL 20 MEQ/15 ML UDCUP PO SCH ×2 (07:54→15:10)
[2017-07-22] MEDS: ENOXAPARIN 40 MG/0.4 ML SYR SC SCH (07:54)
[2017-07-22] MEDS: METOPROLOL TARTRATE 25 MG TAB PO SCH ×2 (07:55→19:54)
[2017-07-22] MEDS: DOXAZOSIN MESYLATE 4 MG TAB PO SCH (07:55)
[2017-07-22] MEDS: ASPIRIN 81 MG CHEWABLE TAB PO SCH (07:55)
[2017-07-22] MEDS: ATORVASTATIN CALCIUM 40 MG TAB PO SCH (07:55)
[2017-07-22] MEDS: CHOLECALCIFEROL VIT D3 2,000 UNITS TAB/CAP PO SCH (07:55)
--- NOTE | 2017-07-22 08:20 | HOSPPROG ---
Hospitalist Progress Note Assessment/Plan: #Acutely decompensated systolic HF: good UOP. Will change to Lasix 40mg PO BID, BB. No TYLER now with recent RAMONA #AAA: ASA, statin #Hypertension: changed to BB, stop Norvasc #Complete heart block: s/p pacer #Deconditioning: PT/OT. Family wants to take him home with home care rather than SNF #Diet: cardiac #DVT ppx: Lovenox #Disp: cont inpatient admission, requiring PT, monitored diuresis Subjective: breathing improved Objective: Vital Signs Temp Pulse Resp BP Pulse Ox 37.0 C 61 19 128/60 H 94 07/21/17 20:00 07/22/17 04:00 07/22/17 04:00 07/22/17 04:00 07/22/17 04:00 Laboratory Results 07/20/17 04:50 07/22/17 05:25 07/21/17 07/22/17 07/23/17 05:59 05:59 05:59 Intake Total 1670 1470 Output Total 4105 3070 Balance -2435 -1600 PT 15.4 SEC (12.0-15.0) H 07/19/17 14:20 INR 1.22 (0.83-1.16) H 07/19/17 14:20 - Physical Exam Constitutional: no apparent distress Eyes: PERRL Ears, Nose, Mouth, Throat: moist mucous membranes, hearing normal Cardiovascular: regular rate and rhythym, edema (+2-3 pitting edema LEs), other (pacer site with healing well ) Respiratory: no respiratory distress Gastrointestinal: normoactive bowel sounds Genitourinary: no bladder fullness Skin: warm Musculoskeletal: generalized weakness Neurologic: AAOx3, CN II-XII Intact Psychiatric: interacting appropriately ICD10 Worksheet Patient Problems: Problems Problem Status Onset Complete heart block Acute Urinary tract infectious disease Active
--- NOTE | 2017-07-22 11:41 | ASMTCMCOM ---
CM Note CM Note Notes: Spoke to patient and family. Therapies recommending HC. Patient has had [facility] in the past and would like to use them on discharge. Notified [facility] and referral made. Not interested in [facility] Whe[facility]. Gave them info on how to apply for a Disability placard. Date Signed: 07/22/2017 11:41 AM Electronically Signed By:Key Baxter LCSW
--- NOTE | 2017-07-22 12:36 | PDCARPN ---
Cardiology Progress Note Chief Complaint: HFpEF/CHB Assessment/Plan: Assessment: 87 y/o M PMH AAA s/p repair 2002, listed h/o TIA, htn, dyslipidemia. Admitted from clinic after being found to be in CHB HR 28. [employer], he noted about 10 days of HANSEN, LH/dizzy. #. CHB: s/p dual chamber ppm #. CHF: as evidenced by severe peripheral edema, small bilateral pleural effusions, abdominal distention symptomatically was able to bike up until 1 week ago and now cannot climb stairs in home without dyspnea likely worsened by loss of cardiac output with CHB echo with normal EF #. AAA: remote s/p repair continue statin and ASA #. DVT ppx: on Lovenox pacer site stable 07/22/17 12:33 Subjective: Reports breathing much improved with ambulation. Objective: Vital Signs (8 Hrs) Temp Pulse Resp BP Pulse Ox 07/22/17 11:33 98.2 F 61 19 123/56 H 94 07/22/17 08:00 98.2 F 61 18 125/61 H 95 Intake/Output (24 Hrs) 07/21/17 07/22/17 07/23/17 05:59 05:59 05:59 Intake Total 1670 1470 Output Total 4105 3070 Balance -2435 -1600 Intake: Oral (ml) 1520 1470 IV Intake (ml) 150 Output: Urine (ml) 4105 3070 Urinal 4105 3070 Other: Weight 88.451 kg 84.5 kg 83.4 kg Number of Voids Urinal 3 Number of Stools Urinal 1 1 Result Diagrams: 07/20/17 04:50 07/22/17 05:25 - Physical Exam Constitutional: no apparent distress Eyes: anicteric sclera Cardiovascular: regular rate and rhythm Respiratory: clear to auscultate bilat, no crackles Gastrointestinal: normoactive bowel sounds, No tenderness Genitourinary: no suprapubic tenderness Skin: other (wearing compressive stockings/ 2+ edema) Neurologic: AAOx3 Psychiatric: cooperative, interactive ICD10 Worksheet Patient Problems: Problems Problem Status Onset Complete heart block Acute Urinary tract infectious disease Active
[2017-07-22] MEDS: FUROSEMIDE 40 MG TAB PO SCH (15:09)
[2017-07-22] MEDS: ACETAMINOPHEN 325 MG TAB PO PRN (23:12)
[2017-07-23 07:13] LABS: ANION GAP 5 mEq/L (8-16); CALCIUM 8.3 mg/dL (8.5-10.4); CARBON DIOXIDE 28 mEq/l (22-31); CHLORIDE 105 mEq/L (97-110); GLOMERULAR FILTRATION RATE > 60; GLUCOSE 125 mg/dL (70-100); SODIUM 138 mEq/L (134-144)
[2017-07-23] MEDS: METOPROLOL TARTRATE 25 MG TAB PO SCH ×2 (08:01→19:54)
[2017-07-23] MEDS: DOXAZOSIN MESYLATE 4 MG TAB PO SCH (08:01)
[2017-07-23] MEDS: FUROSEMIDE 40 MG TAB PO SCH (08:01)
[2017-07-23] MEDS: ASPIRIN 81 MG CHEWABLE TAB PO SCH (08:01)
[2017-07-23] MEDS: BISACODYL 5 MG EC TAB PO SCH (08:01)
[2017-07-23] MEDS: ATORVASTATIN CALCIUM 40 MG TAB PO SCH (08:01)
[2017-07-23] MEDS: POTASSIUM CL 20 MEQ/15 ML UDCUP PO SCH ×2 (08:01→14:06)
[2017-07-23] MEDS: CHOLECALCIFEROL VIT D3 2,000 UNITS TAB/CAP PO SCH (08:02)
[2017-07-23] MEDS: ENOXAPARIN 40 MG/0.4 ML SYR SC SCH (08:06)
--- NOTE | 2017-07-23 09:25 | HOSPPROG ---
Hospitalist Progress Note Assessment/Plan: #Acutely decompensated systolic HF: transitioned to PO Lasix yesterday. IV lasix once today. Cr stable. Cont BB, no TYLER now with recent RAMONA #AAA: ASA, statin #Hypertension: changed to BB, stop Norvasc #Complete heart block: s/p pacer. Site with small hematoma. Hold ASA, Lovenox #Deconditioning: PT/OT. Family open to SNF; they will tour one tomorrow. #Diet: cardiac #DVT ppx: hold Lovenox with swelling at pacer site #Disp: cont inpatient admission, requiring PT, monitored diuresis Subjective: no CP or SOB Objective: Vital Signs Temp Pulse Resp BP Pulse Ox 36.9 C 68 27 H 141/57 H 94 07/23/17 07:48 07/23/17 08:01 07/23/17 07:48 07/23/17 08:01 07/23/17 07:48 Laboratory Results 07/20/17 04:50 07/23/17 06:45 07/22/17 07/23/17 07/24/17 05:59 05:59 05:59 Intake Total 1470 300 Output Total 3070 500 Balance -1600 -200 PT 15.4 SEC (12.0-15.0) H 07/19/17 14:20 INR 1.22 (0.83-1.16) H 07/19/17 14:20 - Physical Exam Constitutional: no apparent distress Eyes: PERRL Ears, Nose, Mouth, Throat: moist mucous membranes Cardiovascular: regular rate and rhythym, edema (+2 LE edema) Respiratory: reduced air movement, inspiratory crackles Gastrointestinal: normoactive bowel sounds, distension (no TTP) Skin: warm Musculoskeletal: other (small hematoma at pacer site with large brusing, no TTP) ICD10 Worksheet Patient Problems: Problems Problem Status Onset Complete heart block Acute Urinary tract infectious disease Active
--- NOTE | 2017-07-23 13:12 | ASMTCMCOM ---
CM Note CM Note Notes: Therapies reporting that patient could use SNF Rehab on discharge. Spoke to patient, and daughter and they are interested in [facility]. Referral sent. Date Signed: 07/23/2017 01:11 PM Electronically Signed By:Key Baxter LCSW
[2017-07-23] MEDS ORDERED: FUROSEMIDE 40 MG/4 ML VIAL IVP ONE (13:21)
--- NOTE | 2017-07-23 13:42 | PDCARPN ---
Cardiology Progress Note Chief Complaint: DCHF Assessment/Plan: Assessment: 87 y/o M PMH AAA s/p repair 2002, listed h/o TIA, htn, dyslipidemia. Admitted from clinic after being found to be in CHB HR 28. [employer], he noted about 10 days of HANSEN, LH/dizzy. #. CHB: s/p dual chamber ppm has small pacer site hematoma agree with hold of Lovenox and ASA #. CHF/HFpEF: as evidenced by severe peripheral edema, small bilateral pleural effusions, abdominal distention symptomatically was able to bike up until 1 week ago and now cannot climb stairs in home without dyspnea likely worsened by loss of cardiac output with CHB echo with normal EF give one time IV lasix as pt still quite hypervolemic #. AAA: remote s/p repair continue statin and ASA #. htn: BP still somewhat elevated will increase Metoprolol now #. DVT ppx: on Lovenox pacer site stable 07/23/17 13:40 Subjective: Feels like he is getting stronger. Reviewed/Discussed With: hospitalist (Dr. Kaur) Objective: Vital Signs (8 Hrs) Temp Pulse Resp BP Pulse Ox 07/23/17 11:45 97.7 F 61 19 133/57 H 92 07/23/17 08:01 68 141/57 H 07/23/17 07:48 98.4 F 60 27 H 141/57 H 94 07/23/17 06:00 98.1 F 60 20 140/53 H 95 Intake/Output (24 Hrs) 07/22/17 07/23/17 07/24/17 05:59 05:59 05:59 Intake Total 1470 300 Output Total 3070 500 Balance -1600 -200 Intake: Oral (ml) 1470 300 Output: Urine (ml) 3070 500 Urinal 3070 500 Other: Weight 84.5 kg 83.4 kg 83.4 kg Intake Quantity Yes Sufficient Number of Voids Toilet 3 Number of Stools Urinal 1 0 Result Diagrams: 07/20/17 04:50 07/23/17 06:45 - Physical Exam Constitutional: healthy appearing, no apparent distress Eyes: anicteric sclera Cardiovascular: regular rate and rhythm Skin: other (L pectoral pacer with ecchymosis and small hematoma) Neurologic: AAOx3 Psychiatric: cooperative, interactive ICD10 Worksheet Patient Problems: Problems Problem Status Onset Complete heart block Acute Urinary tract infectious disease Active
[2017-07-24 05:25] LABS: HEMATOCRIT 40.6 % (40.0-51.0); HEMOGLOBIN 13.6 g/dL (13.7-17.5); MEAN CELL HEMOGLOBIN 31.1 pg (27.9-34.1); MEAN CELL HEMOGLOBIN CONCENTR. 33.5 g/dL (32.4-36.7); MEAN CELL VOLUME 92.9 fL (81.5-99.8); RED BLOOD CELL COUNT 4.37 10^6/uL (4.40-6.38); RED CELL DISTRIBUTION WIDTH 13.4 % (11.5-15.2)
[2017-07-24 05:44] LABS: ANION GAP 8 mEq/L (8-16); CALCIUM 8.6 mg/dL (8.5-10.4); CARBON DIOXIDE 28 mEq/l (22-31); CHLORIDE 104 mEq/L (97-110); GLOMERULAR FILTRATION RATE > 60; GLUCOSE 95 mg/dL (70-100); POTASSIUM 4.3 mEq/L (3.5-5.2); SODIUM 140 mEq/L (134-144)
--- NOTE | 2017-07-24 08:05 | HOSPPROG ---
Hospitalist Progress Note Assessment/Plan: #Acutely decompensated systolic HF: still with moderate leg edema. Will give IV lasix this afternoon. Cr stable #Pacemaker hematoma: larger today, has been of AC, ASA. Has been lifting arm. Dr. Arellano with cardiology to evaluate #AAA: ASA, statin #Hypertension: changed to BB, stop Norvasc #Acute hypoxic resp failure: due to atelectasis. No edema on repeat Xray today #Complete heart block: s/p pacer. Site with small hematoma. Hold ASA, Lovenox #Deconditioning: PT/OT. Family open to SNF; they will tour one tomorrow. #Diet: cardiac #DVT ppx: hold Lovenox with swelling at pacer site #Disp: cont inpatient admission, requiring PT, monitored diuresis. Family to tour SNF today Subjective: no CP or SOB. Per family, has been raising his arm Objective: Vital Signs Temp Pulse Resp BP Pulse Ox 36.8 C 61 19 145/67 H 93 07/23/17 20:00 07/24/17 04:00 07/24/17 04:00 07/24/17 04:00 07/24/17 04:00 Laboratory Results 07/24/17 05:05 07/24/17 05:05 07/23/17 07/24/17 07/25/17 05:59 05:59 05:59 Intake Total 300 1750 Output Total 500 1875 Balance -200 -125 PT 15.4 SEC (12.0-15.0) H 07/19/17 14:20 INR 1.22 (0.83-1.16) H 07/19/17 14:20 - Physical Exam Constitutional: no apparent distress Eyes: PERRL Ears, Nose, Mouth, Throat: moist mucous membranes Cardiovascular: edema (+2-3 leg edema) Respiratory: no respiratory distress, reduced air movement Gastrointestinal: normoactive bowel sounds Genitourinary: no bladder fullness Skin: warm Musculoskeletal: other (left pectoral pacer site with enlarged, firh hematoma. Bruising now extends down the entire arm ) Neurologic: AAOx3, CN II-XII Intact Psychiatric: interacting appropriately ICD10 Worksheet Patient Problems: Problems Problem Status Onset Complete heart block Acute Urinary tract infectious disease Active
[2017-07-24] MEDS: POTASSIUM CL 20 MEQ/15 ML UDCUP PO SCH ×2 (08:24→16:23)
[2017-07-24] MEDS: BISACODYL 5 MG EC TAB PO SCH (08:25)
[2017-07-24] MEDS: ATORVASTATIN CALCIUM 40 MG TAB PO SCH (08:25)
[2017-07-24] MEDS: FUROSEMIDE 40 MG TAB PO SCH (08:26)
[2017-07-24] MEDS: CHOLECALCIFEROL VIT D3 2,000 UNITS TAB/CAP PO SCH (08:26)
[2017-07-24] MEDS: METOPROLOL TARTRATE 25 MG TAB PO SCH ×2 (08:26→21:16)
[2017-07-24] MEDS: DOXAZOSIN MESYLATE 4 MG TAB PO SCH (11:41)
[2017-07-24] MEDS ORDERED: FUROSEMIDE 40 MG/4 ML VIAL IVP SCH (15:00)
[2017-07-24] MEDS ORDERED: DOXAZOSIN MESYLATE 4 MG TAB PO SCH (21:00)
[2017-07-25 03:57] VITALS: TEMP 97.7; O2SAT 90
[2017-07-25 05:34] LABS: HEMATOCRIT 41.9 % (40.0-51.0); HEMOGLOBIN 14.2 g/dL (13.7-17.5); MEAN CELL HEMOGLOBIN 32.1 pg (27.9-34.1); MEAN CELL HEMOGLOBIN CONCENTR. 33.9 g/dL (32.4-36.7); MEAN CELL VOLUME 94.6 fL (81.5-99.8); RED BLOOD CELL COUNT 4.43 10^6/uL (4.40-6.38); RED CELL DISTRIBUTION WIDTH 13.5 % (11.5-15.2)
[2017-07-25 05:45] LABS: ANION GAP 10 mEq/L (8-16); CALCIUM 8.9 mg/dL (8.5-10.4); CARBON DIOXIDE 27 mEq/l (22-31); CHLORIDE 103 mEq/L (97-110); CREATININE 1.1 mg/dL (0.7-1.3); GLOMERULAR FILTRATION RATE > 60; GLUCOSE 87 mg/dL (70-100); SODIUM 140 mEq/L (134-144)
[2017-07-25 08:33] VITALS: BP 100/63; PULSE 60; RESP 17
[2017-07-25] MEDS ORDERED: FUROSEMIDE 40 MG TAB PO SCH (09:00)
--- NOTE | 2017-07-25 09:04 | HOSPPROG ---
Hospitalist Progress Note Assessment/Plan: #Acutely decompensated systolic HF: still with moderate leg edema. Will give IV lasix this afternoon. Cr stable #Pacemaker hematoma: less swollen today. Has been lifting arm. Hold ASA until Saturday #AAA: statin, may resume ASA on 07/28 #Hypertension: changed to BB. Consider ACEI if warranted outpatient #Acute hypoxic resp failure: due to atelectasis. No edema on repeat Xray today #Complete heart block: s/p pacer. Site with small hematoma. Hold ASA, Lovenox #Deconditioning: PT/OT. Family open to SNF #Diet: cardiac #DVT ppx: hold Lovenox with swelling at pacer site #Disp: DC today Subjective: Doing well. SOB improved Objective: Vital Signs Temp Pulse Resp BP Pulse Ox 36.5 C 60 17 100/63 90 L 07/25/17 08:25 07/25/17 08:25 07/25/17 08:25 07/25/17 08:25 07/25/17 08:25 Laboratory Results 07/25/17 04:15 07/25/17 04:15 07/24/17 07/25/17 07/26/17 05:59 05:59 05:59 Intake Total 1750 350 Output Total 1875 2850 Balance -125 -2500 PT 15.4 SEC (12.0-15.0) H 07/19/17 14:20 INR 1.22 (0.83-1.16) H 07/19/17 14:20 - Physical Exam Constitutional: no apparent distress Eyes: PERRL Ears, Nose, Mouth, Throat: moist mucous membranes Cardiovascular: regular rate and rhythym, edema (+2 LE edema) Respiratory: reduced air movement Gastrointestinal: normoactive bowel sounds, soft, non-tender abdomen Genitourinary: no bladder fullness Musculoskeletal: other (left pectoral pacer site with less swelling today. Extensive bruising over left upper chest and down that arm.) Neurologic: AAOx3, CN II-XII Intact Psychiatric: interacting appropriately ICD10 Worksheet Patient Problems: Problems Problem Status Onset Complete heart block Acute Urinary tract infectious disease Active
[2017-07-25] MEDS: CHOLECALCIFEROL VIT D3 2,000 UNITS TAB/CAP PO SCH (10:07)
[2017-07-25] MEDS: ATORVASTATIN CALCIUM 40 MG TAB PO SCH (10:07)
[2017-07-25] MEDS: METOPROLOL TARTRATE 25 MG TAB PO SCH (10:08)
[2017-07-25] MEDS: POTASSIUM CL 20 MEQ/15 ML UDCUP PO SCH (10:08)
--- NOTE | 2017-07-25 11:25 | PDCARPN ---
Cardiology Progress Note Chief Complaint: CHB Assessment/Plan: Assessment: 87 y/o M PMH AAA s/p repair 2002, listed h/o TIA, htn, dyslipidemia. Admitted from clinic after being found to be in CHB HR 28. 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 #. CHB: s/p dual chamber ppm has small pacer site hematoma agree with hold of Lovenox and ASA #. pacer site hematoma: small pacer site redressed we reviewed need for wound check in our office for next week #. CHF/HFpEF: as evidenced by severe peripheral edema, small bilateral pleural effusions, abdominal distention symptomatically was able to bike up until 1 week ago and now cannot climb stairs in home without dyspnea likely worsened by loss of cardiac output with [facility] echo with normal EF #. AAA: remote s/p repair continue statin #. htn: started on Metoprolol will need clinic followup #. DVT ppx: compressive stockings only OK to d/c from cardiology perspective 07/25/17 11:22 Subjective: No significant pain at pacer site. Legs remain swollen. Objective: Vital Signs (8 Hrs) Temp Pulse Resp BP Pulse Ox 07/25/17 08:25 97.7 F 60 17 100/63 90 L 07/25/17 03:55 97.7 F 71 20 139/84 H 90 L Intake/Output (24 Hrs) 07/24/17 07/25/17 07/26/17 05:59 05:59 05:59 Intake Total 1750 350 Output Total 1875 2850 Balance -125 -2500 Intake: Oral (ml) 1750 350 Output: Urine (ml) 1875 2850 Toilet 1450 2650 Urinal 425 200 Other: Weight 81.4 kg 79.5 kg Intake Quantity Yes Sufficient Number of Voids Toilet 2 1 Number of Stools Toilet 1 Result Diagrams: 07/25/17 04:15 07/25/17 04:15 Telemetry: Paced rhythm - Physical Exam Constitutional: no apparent distress Cardiovascular: regular rate and rhythm, no murmurs Respiratory: clear to auscultate bilat Skin: other (extensive ecchymosis L pectoral region, small hematoma) Neurologic: AAOx3 ICD10 Worksheet Patient Problems: Problems Problem Status Onset Complete heart block Acute Urinary tract infectious disease Active
--- NOTE | 2017-07-25 14:34 | PDIAF ---
- Diagnosis Diagnosis: complete heart block Code Status: Full Code - Medication Management Discharge Medications: Medications to Continue on Transfer Doxazosin Mesylate [Cardura 4 MG (*)] 4 mg PO HS 10/31/16 [Last Taken 07/18/17] Acetaminophen [Tylenol 325mg (*)] 325 mg PO Q6 PRN 07/19/17 [Last Taken 07/18/17 ] Bisacodyl [Dulcolax] 5 mg PO DAILY 07/19/17 [Last Taken 07/18/17] Cholecalciferol Vit D3 [Vitamin D3 (*)] 5,000 units PO DAILY 07/19/17 [Last Taken 07/16/17] Aspirin EC [Aspirin EC 81 mg (*)] 81 mg PO HS #30 mg 07/25/17 [Last Taken ] Atorvastatin Calcium [Lipitor 40 mg (*)] 40 mg PO DAILY #30 mg 07/25/17 [Last Taken 07/18/17] Furosemide [Lasix 40 MG (*)] 40 mg PO BID@0900,1500 #60 tab 07/25/17 [Last Taken Unknown] Metoprolol Tartrate [Lopressor 25 mg (*)] 25 mg PO BID #60 tab 07/25/17 [Last Taken Unknown] Discharge Medications: Refer to the Discharge Home Medication list for PRN reason. - Orders Services needed: Registered Nurse, Certified Drink Mixer, Physical Therapy, Occupational Therapy Diet Recommendation: cardiac -low fat low salt Additional: Monitor blood pressure: may add Lisinopril 2.5mg if needed - Labs/Radiology Creatinine Date: 07/26/17 (on diuretics) - Follow Up Care Current Providers and Referrals: Lilo Peralta MD [Primary Care Provider] - As per Instructions
--- NOTE | 2017-07-25 14:53 | ASMTCMCOM ---
CM Note CM Note Notes: Pt is being discharged to [facility]. CM met w/ pt and family for dispo planning. [facility] has set up transportation for pt. CM sent d/c orders over. CM provided RENATO Mathur w/ phone number to give report to [facility]. CM available for changes. Date Signed: 07/25/2017 02:53 PM Electronically Signed By:IRENE Sauceda
--- NOTE | 2017-07-25 20:59 | GDS ---
[f rep st] DISCHARGE SUMMARY DISCHARGE DIAGNOSES: 1. Hypertension. 2. Volume overload. 3. Acute hypoxic respiratory failure. 4. Benign prostatic hypertrophy. 5. Sick sinus syndrome, complete heart block, status post pacemaker. 6. History of abdominal aortic aneurysm status post graft. 7. Hyperlipidemia. 8. Chronic lower extremity wounds. 9. Decompensated heart failure with preserved ejection fraction. 10. Acute kidney injury. HISTORY OF PRESENT ILLNESS: A pleasant 87-year-old male with history of hypertension, AAA, BPH, who presented with 10 days of lethargy and generalized weakness. He had noted some increased lower extre mity edema. He was seen in Cardiology Clinic prior to arrival and EKG showed complete heart block. He had denied any chest pain, fevers, chills, or sweats. HOSPITAL COURSE: 1. Complete heart block: Patient underwent pacemaker placement on 07/19/2017. He did develop a hem atoma while on Lovenox and aspirin. This has improved withholding these medications. He may resume aspirin on 07/28/2017. Follow up in Cardiology Clinic for wound check next week. 2. Acutely decompensated heart failure with preserved EF: The patient has diuresed well with IV Las ix. This was transitioned to 40 twice daily. He is to continue this. Check a creatinine level cheryle rrow. 3. Hypertension. This improved with diuresis and up-titration of beta camille. He was on amlodipin e, but this was stopped as it was likely contributing to his lower extremity edema. If remains hyper tensive, would recommend low-dose lisinopril. 4. AAA status post repair. In 2014, he had an ascending aortic dilatation of 4.1 cm. This was not well visualized on echocardiogram here. He can repeat this as an outpatient. 5. Acute kidney injury: At time of admission, creatinine was 1.4. This improved with diuresis; it is 1.1 today. Avoid nephrotoxic medications. Will repeat tomorrow with continued diuresis. 6. Pacemaker site hematoma: The patient was using his arm, despite strict precautions. This was ev aluated by Cardiology and they felt it to be stable. The swelling is actually decreased today. Will hold aspirin until Saturday. 7. History of TIA. Again, hold aspirin until the . Continue statin. 8. Benign prostatic hypertrophy. Doxazosin. 9. Acute hypoxic respiratory failure: Secondary to volume overload. This is improved. Atelectasis is likely contributing. This should improve with ambulation and continued diuresis. 10. Deconditioning: Had extensive discussions with patient and family, and they have agreed to disc harge to [facility]. DISPOSITION: Patient is stable for discharge. Patient is being discharged to [facility] for rehab. NEW MEDICATIONS: 1. Lasix 40 mg twice daily. 2. Metoprolol 25 mg twice daily. FOLLOWUP: 1. Cardiology Clinic in 1 week for pacer site check. 2. Primary care physician. 3. Follow blood pressure. Consider addition of low-dose TYLER inhibitor if warranted. 4. Check creatinine. /[id number]/MODL
--- NOTE | 2017-07-26 09:54 | ASDISCHSUM ---
Discharge Information Plan Status:SNF Medically Cleared to Leave:07/24/2017 Discharge Date:07/25/2017 03:45 PM CM D/C Disposition:Retirement Facility ADT D/C Disposition:Retirement Facility Projected Discharge Date:07/25/2017 11:00 AM Transportation at D/C:Wheelchair Van Discharge Delay Reason: Follow-Up Date:07/25/2017 11:00 AM Discharge Slot: Final Diagnosis:Ruptured AAA, HLD, HTN, Hrt Block Placement Information Referral Type:*Home Health Care Services Referral ID:[id number] Provider Name: Address 1: Phone Number: Address 2: Fax Number: City: Selection Factors: State: Referral Type:*Correction/SNF Referral ID:[id number] Provider Name:[facility] Address 1:[address] [place] [address] Address 2: City:[place] Selection Factors: State:[place] Patient Contact Information Contact Name:JACINTO Relationship: Address:[address] Work Phone: [facility]:[place] Alternate Phone: [facility]/Zip Code:[place] [address] Email: Financial Information Financial Class: Primary Plan Desc:MEDICARE INPATIENT Primary Plan Number:[id number] Secondary Plan Desc:[employer] Secondary Plan Number:[id number] Assessment Information LACE LACE Length of stay for Answers: Less than 1 day current admission Acuity / Level of Care Answers: Was the patient admitted to hospital via the emergency department? Yes: Comorbidities - select Answers: Cerebrovascular disease all that apply Emergency dept visits in Answers: 1 last 6 months Score: 5 Date Signed: 07/19/2017 04:40 PM Electronically Signed By:Fanny Richardson RN [facility] Initial CM Assessment Living Arrangements What is your living Answers: With Spouse arrangement? Who do you live with? Type Of Residence What kind of residence do Answers: House you live in? Discharge Plan Comments Coordination Status Comments Notes: Pt is a 87 y/o man admitted w/ generalized weakness, lightheadedness and lower extremity edema. Pt is day 1 post op from having a pacemaker placed. PT and OT have been ordered and awaiting recommendations. Needs are TBD at this time. CM to follow. Date Signed: 07/20/2017 09:44 AM Electronically Signed By:IRENE Sauceda [facility] CM Progress Note CM Note CM Note Notes: Spoke to patient and family. Therapies recommending HC. Patient has had [facility] in the past and would like to use them on discharge. Notified [facility] and referral made. Not interested in [facility] Whe[facility]. Gave them info on how to apply for a Disability placard. Date Signed: 07/22/2017 11:41 AM Electronically Signed By:Key Baxter LCSW [facility] CM Progress Note CM Note CM Note Notes: Therapies reporting that patient could use SNF Rehab on discharge. Spoke to patient, and daughter and they are interested in [facility] [place]. Referral sent. Date Signed: 07/23/2017 01:11 PM Electronically Signed By:Key Baxter LCSW [facility] Progress Note CM Note CM Note Notes: Pt is being discharged to [facility]. CM met w/ pt and family for dispo planning. [facility] has set up transportation for pt. CM sent d/c orders over. CM provided RENATO Mathur w/ phone number to give report to [facility]. CM available for changes. Date Signed: 07/25/2017 02:53 PM Electronically Signed By:IRENE Sauceda Intervention Information Intervention Type:*Incorrect Registration Date of Service:07/19/2017 05:42 PM Patient Type:Observation Staff Member:RENATO Lr, Roshni Hours: Discipline: Severity: Comment: Intervention Type:*IM-Signed Date of Service:07/25/2017 02:25 PM Patient Type:Inpatient Staff Member:Aurelia Macdonald Hours: Discipline: Severity: Comment:
== END 2017-07-25 15:45 | DRG 242 ==
LOC: OBSVTOIN 14:53 → F2N 16:46 → F2W 07-24 18:42
PROVIDERS: ADMIT Internal Medicine; ATTEND Internal Medicine
PROC: 02H63JZ Insertion of Pacemaker Lead into Right Atrium, Percutaneous Approach (ICD-10-PCS; principal; 2017-07-19)
PROC: 02HK3JZ Insertion of Pacemaker Lead into Right Ventricle, Percutaneous Approach (ICD-10-PCS; principal; 2017-07-19)
PROC: 0JH606Z Insertion of Pacemaker, Dual Chamber into Chest Subcutaneous Tissue and Fascia, Open Approach (ICD-10-PCS; principal; 2017-07-19)
DX: I44.2 Atrioventricular block, complete (principal); L76.02 Intraoperative hemorrhage and hematoma of skin and subcutaneous tissue complicating other procedure; I50.21 Acute systolic (congestive) heart failure; J96.01 Acute respiratory failure with hypoxia; R53.1 Weakness; N40.0 Benign prostatic hyperplasia without lower urinary tract symptoms; E78.5 Hyperlipidemia, unspecified; N17.9 Acute kidney failure, unspecified; Z86.73 Personal history of transient ischemic attack (TIA), and cerebral infarction without residual deficits; Z79.82 Long term (current) use of aspirin; Z79.02 Long term (current) use of antithrombotics/antiplatelets
CPT/HCPCS: 82947-QW; 97110-GP; 97116-GP; 97161-GP; 97166-GO; 97530-GP; 97535-GO; C1785; C1898; G0378; G8978-GP-CK; G8979-GP-CI; G8987-GO-CK; G8988-GO-CI; G8989-GO-CJ; J0690; J1650; J1940; J2250; J3010; Q9967

== ENCOUNTER 2018-07-27 11:31 | Inpatient (IN) | payer OTHER ==
--- NOTE | 2018-07-27 12:08 | EDPHY ---
H & P Stated Complaint: increased bilat leg swelling pain, hx cellulitus, feeling off balance Time Seen by Provider: 07/27/18 11:50 HPI/ROS: CHIEF COMPLAINT: Bilateral lower extremity cellulitis HISTORY OF PRESENT ILLNESS: 88-year-old male arrives from home with family, history of CHF, pacer, cellulitis lower extremity with hospitalization for bilateral lower extremity cellulitis in the past, complaining of 1 week of progressive erythema to the bilateral pretibial region as well as progressive bilateral lower extremity edema. Because of the increased pain and swelling he has had increased difficulty ambulating without assistance. No fever no chills. No chest pain. No dyspnea. No syncope or near syncope. PRIMARY CARE PROVIDER: Dr. Lilo Peralta. REVIEW OF SYSTEMS: 10 systems reviewed and negative with the exception of the elements mentioned in the history of present illness PAST MEDICAL & SURGICAL HISTORY: CHF. Pacer. Cellulitis bilateral lower extremity SOCIAL HISTORY: nonsmoker PHYSICAL EXAM (Prior to examination, patient consented to physical exam, hands were washed and my usual and customary physical exam procedures followed) 1) GENERAL: Well-developed, well-nourished, alert and oriented. Appears to be in no acute distress. 2) HEAD: Normocephalic, atraumatic 3) HEENT: Pupils equal, round, reactive to light bilaterally. Sclera anicteric. 4) NECK: Full range of motion, no meningeal signs. 5) LUNGS: Clear auscultation bilaterally, no wheezes, no rhonchi, no retractions. 6) HEART: Regular rate and rhythm, no murmur, no heave, no gallop. 7) ABDOMEN: No guarding, no rebound, no focal tenderness, negative McBurney's, negative Hsu's, negative Rovsing's, negative peritoneal sign, 8) MUSCULOSKELETAL: Bilateral pitting edema, right pretibial lesion, erythema, increased warmth, left lateral fibular lesion with erythema, increased warmth 9) BACK: No CVA tenderness, no midline vertebral tenderness, no fluctuance, no step-off, no obvious trauma, no visual or palpable abnormality. 10) SKIN: No rash, no petechiae. 11) Psychiatric: Patient is oriented X 3, there is no agitation. DIFFERENTIAL DIAGNOSIS: In no particular order including but not limited to cellulitis, necrotizing fasciitis, CHF exacerbation, dependent edema - Personal History Tetanus Vaccine Date: 2009 - Medical/Surgical History Hx Asthma: No Hx Chronic Respiratory Disease: No Hx Diabetes: No Hx Cardiac Disease: Yes Hx Renal Disease: No Hx Cirrhosis: No Hx Alcoholism: No Hx HIV/AIDS: No Hx Splenectomy or Spleen Trauma: No Other PMH: Aortic aneurysm repair, small bowel blockage. Prostate,. 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 from aneurysm repair, pacemaker, SSS, CHB - Social History Smoking Status: Former smoker Constitutional: Initial Vital Signs Temperature (C) 36.3 C 07/27/18 11:44 Heart Rate 61 07/27/18 11:44 Respiratory Rate 16 07/27/18 11:44 Blood Pressure 121/99 H 07/27/18 11:44 O2 Sat (%) 91 L 07/27/18 11:44 O2 Delivery Mode Room Air Allergies/Adverse Reactions: No Known Allergies Allergy (Verified 04/16/18 17:13) Home Medications: Medication Instructions Recorded Acetaminophen [Tylenol 325mg (*)] 325 mg PO Q6 PRN 04/16/18 Aspirin [Aspirin 81mg (*)] 81 mg PO DAILY@18 04/16/18 Atorvastatin Calcium [Lipitor 40 40 mg PO DAILY@18 04/16/18 mg (*)] Cholecalciferol Vit D3 [Vitamin D3 5,000 units PO DAILY@18 04/16/18 (*)] Doxazosin Mesylate [Cardura 4 MG 4 mg PO DAILY 04/16/18 (*)] Furosemide [Lasix 40 MG (*)] 40 mg PO DAILY 04/16/18 Metoprolol Tartrate [Lopressor 25 25 mg PO BID 04/16/18 mg (*)] Triamcinolone 0.1% [Triamcinolone 1 rachid TP PRN PRN 04/16/18 0.1% Cream (*)] Docusate Sodium [Dulcolax Stool 100 mg PO DAILY@18 07/27/18 Softener] Furosemide [Lasix 40 MG (*)] 40 mg PO DAILY PRN 07/27/18 Potassium Cl [Klor-Con 20 meq (*)] 20 meq PO DAILY 07/27/18 Medical Decision Making - Diagnostics Imaging Results: Imaging Impressions Chest X-Ray 07/27/18 12:09 Impression: No evidence for acute cardiopulmonary abnormality. Stable mild cardiomegaly. Images reviewed myself ED Course/Re-evaluation: 12:05 p.m.: I reviewed the patient's old medical records which include hospitalization April 2018 for strep bacteremia sepsis with encephalopathy for which he was on extended course of antibiotics and hospitalization. He also has history of CHF. On exam he has bilateral pitting edema with signs of early cellulitis. He is mentating clearly and does not meet serious criteria at this time. Have discussed case with Dr. Jamie May in the ER. Recommend laboratory studies, IV antibiotics and hospital admission. He denies cardiac or pulmonary complaints such as dyspnea, chest pain, dizziness, syncope, near syncope. 1:26 p.m.: Consultation with hospitalist , admit to Dr. Bertrand Paula for bilateral lower extremity cellulitis. Doubt necrotizing fasciitis - Data Points Laboratory Results: Laboratory Results 07/27/18 12:12 07/27/18 12:12 07/27/18 07/27/18 12:12 12:12 WBC 7.67 10^3/uL 10^3/uL (3.80-9.50) RBC 4.81 10^6/uL 10^6/uL (4.40-6.38) Hgb 14.5 g/dL g/dL (13.7-17.5) Hct 44.3 % % (40.0-51.0) MCV 92.1 fL fL (81.5-99.8) MCH 30.1 pg pg (27.9-34.1) MCHC 32.7 g/dL g/dL (32.4-36.7) RDW 13.9 % % (11.5-15.2) Plt Count 160 10^3/uL 10^3/uL (150-400) MPV 10.8 fL fL (8.7-11.7) Neut % (Auto) 63.3 % % (39.3-74.2) Lymph % (Auto) 14.9 % L % (15.0-45.0) [place] % (Auto) 15.9 % H % (4.5-13.0) Eos % (Auto) 5.2 % % (0.6-7.6) Baso % (Auto) 0.4 % % (0.3-1.7) Nucleat RBC Rel Count 0.0 % % (0.0-0.2) Absolute Neuts (auto) 4.86 10^3/uL 10^3/uL (1.70-6.50) Absolute Lymphs (auto) 1.14 10^3/uL 10^3/uL (1.00-3.00) Absolute Monos (auto) 1.22 10^3/uL H 10^3/uL (0.30-0.80) Absolute Eos (auto) 0.40 10^3/uL 10^3/uL (0.03-0.40) Absolute Basos (auto) 0.03 10^3/uL 10^3/uL (0.02-0.10) Absolute Nucleated RBC 0.00 10^3/uL 10^3/uL (0-0.01) Immature Gran % 0.3 % % (0.0-1.1) Immature Gran # 0.02 10^3/uL 10^3/uL (0.00-0.10) Sodium 138 mEq/L mEq/L (135-145) Potassium 4.4 mEq/L mEq/L (3.3-5.0) Chloride 106 mEq/L mEq/L (97-110) Carbon Dioxide 26 mEq/l mEq/l (22-31) Anion Gap 6 mEq/L mEq/L (6-14) BUN 21 mg/dL mg/dL (7-23) Creatinine 0.9 mg/dL mg/dL (0.7-1.3) Estimated GFR > 60 Glucose 125 mg/dL H mg/dL (70-100) Calcium 8.9 mg/dL mg/dL (8.5-10.4) NT-Pro-B Natriuret Pep 343 pg/mL pg/mL (0-450) Medications Given: Discontinued Medications Cefazolin Sodium/Dextrose (Ancef) 100 mls @ 200 mls/hr IV EDNOW ONE PRN Reason: Protocol Stop: 07/27/18 12:58 Last Admin: 07/27/18 13:05 Dose: 100 mls Departure - Departure
[2018-07-27 12:29] LABS: PLATELET COUNT 160 10^3/uL (150-400)
[2018-07-27] MEDS ORDERED: ceFAZolin 2 GM/DEXTROSE 100 ML IV ONE (12:29)
--- NOTE | 2018-07-27 13:32 | CPEKG ---
Test Reason : OPEN Blood Pressure : / mmHG Vent. Rate : 060 BPM Atrial Rate : 060 BPM P-R Int : 203 ms QRS Dur : 167 ms QT Int : 473 ms P-R-T Axes : -14 -78 092 degrees QTc Int : 473 ms A-V dual-paced rhythm with some inhibition Confirmed by Jamie May ([id number]) on 07/27/2018 1:32:19 PM Referred By: Confirmed By:Jamie May
[2018-07-27] MEDS ORDERED: ACETAMINOPHEN 325 MG TAB PO PRN ×2 (15:06→15:07)
[2018-07-27] MEDS ORDERED: ONDANSETRON 4 MG/2 ML VIAL IVP PRN (15:06)
[2018-07-27] MEDS ORDERED: ONDANSETRON DISINTEGRATING 4 MG TAB PO PRN (15:06)
[2018-07-27] MEDS ORDERED: TRIAMCINOLONE 0.1% 15 GM CRTUBE TP PRN (15:07)
[2018-07-27] MEDS: FUROSEMIDE 20 MG/2 ML VIAL IVP SCH (15:49)
--- NOTE | 2018-07-27 15:57 | GHP ---
DATE OF ADMISSION: 07/27/2018 CHIEF COMPLAINT: Possible cellulitis. HISTORY OF PRESENT ILLNESS: This is an 88-year-old man with a history of heart failure, as well as recent cellulitis/bacteremia, who presents with worsening left leg pain. Recent history notable for a hospitalization here from April 16 to April 22. At that time, he was septic, bacteremic with group B strep bacteremia due to a cellulitis. He was discharged on penicillin for antibiotics to [facility]. There he was diuresed pretty significantly, completed his course of IV antibiotics without issue and returned home. He has been doing well for about the last 2 months. About a week ago he had a 7-pound weight gain, he increased his home Lasix from 40 mg daily to 80 mg daily and lost 7 pounds over approximately a week. His weight has been stable since then. He did develop some lower extremity wounds at that time. He noticed that his left leg became more sensitive to the touch about approximately yesterday at which point, his daughter, who is a nurse here, recommended that he present to the hospital. He denies having any fever or rigors at home. He has noticed some increasing redness around this leg too. PAST MEDICAL/SURGICAL HISTORY: 1. Group B strep bacteremia/recent cellulitis. 2. History of hypertension. 3. Complete heart block, as well as sick sinus syndrome, status post pacemaker. 4. Diastolic CHF. 5. Abdominal aortic aneurysm status post graft. 6. TIA. 7. Hyperlipidemia. 8. BPH. MEDICATIONS: Please see medication reconciliation. ALLERGIES: No known drug allergies. SOCIAL HISTORY: He used to smoke a pipe, he does not any more. He is accompanied by his , daughter. He does not drink alcohol. FAMILY HISTORY: Reviewed and noncontributory. REVIEW OF SYSTEMS: A 10-point review of systems is conducted and is negative except per HPI. PHYSICAL EXAM: VITAL SIGNS: Blood pressure 166/72, heart rate 60, respiratory rate 18, saturating 92% on room air, temperature is 36.5. GENERAL: Mr. Mohan is a pleasant man who is resting comfortably. No acute distress. HEENT: Shows him to be normocephalic, atraumatic. CARDIOVASCULAR: Shows regular rate and rhythm. He has a faint systolic murmur. He has 2+ bilateral lower extremity edema. PULMONARY: Shows him to be breathing comfortably. LUNGS: Clear to auscultation bilaterally from the anterior. ABDOMEN: Soft, nontender , nondistended. SKIN: Shows no rash. : Shows no Sharma. NEUROLOGIC: Shows him to be alert and oriented x3. He is moving all extremities. PSYCHIATRIC: Shows normal mood and affect. EXTREMITIES: Shows bilateral lower extremities to have 2+ pitting edema to the mid-carrington. His right lower extremity has an open wound but there is no significant warmth or surrounding erythema. His left lower extremity has some chronic appearing darker erythema surrounding an open wound in the mid car[place]. He also has some primary teaching assistant salmon colored erythema, which is extending beyond this. This leg is warm, as well as tender to palpation. He has no streaking or inguinal lymphadenopathy. LABS: White count is 7.6. INR is 1.2. Basic metabolic panel is normal. DATA: 1. I reviewed his chart including his recent admission. 2. I personally reviewed and interpreted his ECG. This shows paced rhythm. 3. I personally reviewed and interpreted his chest x-ray. This shows dual chamber pacemaker. There is nothing acute. IMPRESSION AND PLAN: 1. Left lower extremity cellulitis: This is relatively mild, although given his recent history, I think more aggressive treatment is appropriate. Suspect that this is once again strep. He has no underlying purulence that I can detect that would make me concerned about Staph. At this point, I think Ancef is appropriate therapy. He is not septic. We will follow his clinical course. 2. Lower extremity wounds: I think that this is due to his edema, which is likely from heart failure, in addition to possible venous insufficiency. I will start diuresis now, I do not think that he will tolerate ARMANDO hose at this point. I have increased his Lasix to 20 mg IV twice daily from 40 mg p.o. daily. We will check daily weights. Follow his I's and O's, as well as kidney function closely. I think preventing cellulitis in the future will be contingent upon controlling his lower extremity edema. 3. Sick sinus syndrome/complete heart block with pacemaker: He seems to be completely paced now. We will follow him on telemetry, while he is getting aggressive diuresis. 4. Abdominal aortic aneurysm status post endograft: This appears to be stable at this point. 5. History of a transient ischemic attack: He is on aspirin, as well as a statin. 6. Benign prostatic hypertrophy: Doxazosin. 7. Venous thromboembolism risk: He is high risk, I have placed him on Lovenox. 8. Code status: He would like to be full code. He has been discussing his advance directives. /[id number]/MODL MTDD
[2018-07-27] MEDS: DOCUSATE SODIUM 100 MG CAP PO SCH (17:35)
[2018-07-27] MEDS: ATORVASTATIN CALCIUM 40 MG TAB PO SCH (17:35)
[2018-07-27] MEDS: ASPIRIN 81 MG CHEWABLE TAB PO SCH (17:35)
[2018-07-27] MEDS: METOPROLOL TARTRATE 25 MG TAB PO SCH (21:07)
[2018-07-27] MEDS ORDERED: ceFAZolin 1 GM in NS 50 ML IV SCH (22:00)
[2018-07-28 05:12] LABS: PLATELET COUNT 149 10^3/uL (150-400)
[2018-07-28] MEDS: METOPROLOL TARTRATE 25 MG TAB PO SCH ×2 (08:10→21:25)
[2018-07-28] MEDS: DOXAZOSIN MESYLATE 4 MG TAB PO SCH (08:10)
[2018-07-28] MEDS: FUROSEMIDE 20 MG/2 ML VIAL IVP SCH ×2 (08:10→14:01)
[2018-07-28] MEDS: POTASSIUM CL 20 MEQ TAB PO SCH (08:10)
[2018-07-28] MEDS: ENOXAPARIN 40 MG/0.4 ML SYR SC SCH (08:11)
--- NOTE | 2018-07-28 08:39 | WOCRNPDOC ---
WOCRN Advanced Assessment Note - Skin Integrity Problem, Advanced Assess Right Lower Leg Dressing Type: Allevyn Life Dressing Description: Clean/Dry, Intact Exudate Amount: Scant Exudate Color: Yellow Exudate Characteristic(s): Serous Integumentary Issue Intervention: Dressing Changed, Dressing Initialed & Dated, Silver Gel Applied, Mechanical Debridement Darion Wound Tissue: Erythema (to several cm darion wound) Wound Bed Constitution: Granulation Tissue (100%) Wound Edges: Epithelizing, Attached Site Measurement - Head-to-Toe Length X Width X Depth (cm): 1x1x0.1 Skin Integrity Problem Comment: Cleaned with ns and gauze. Silvasorb to wound bed. Covered with allevyn life. Instructed patient to keep area clean and covered with antibacterial ointement at home to reduce change of infection. May have some PVD but not classical presentation. No hemosiderin staning, but there is erythema/scarring bilaterally around where the wounds open up from the significant edema in patient's legs. Light compression might help. Wound care will sign off. Left Lower Lateral Leg Dressing Type: Allevyn Life Dressing Description: Clean/Dry, Intact Exudate Amount: Scant Exudate Color: Yellow Exudate Characteristic(s): Serous Integumentary Issue Intervention: Dressing Changed, Dressing Initialed & Dated, Silver Gel Applied, Mechanical Debridement Darion Wound Tissue: Erythema, Swollen Darion Wound Swelling: None Wound Bed Constitution: Adhered Slough (100%) Wound Edges: Epithelizing, Attached Site Measurement - Head-to-Toe Length X Width X Depth (cm): x2 wounds: proximal : 1x0.8x0.1, distal: 1.3x0.9x0.1 Extremity Temperature: Warm Peripheral Edema Location & Description: 2+ pitting bilateral LE and feet
--- NOTE | 2018-07-28 10:09 | ASMTCMCOM ---
CM Note CM Note Notes: CM spoke to RENATO Simms regarding d/c POC. Pt is a 88 y/o man admitted for bilateral pretibial cellulitis. PT and wound care has been ordered. Needs are TBD at this time. CM to follow. Plan: TBD Date Signed: 07/28/2018 10:08 AM Electronically Signed By:IRENE Sauceda
--- NOTE | 2018-07-28 12:51 | HOSPPROG ---
Hospitalist Progress Note Assessment/Plan: 88y male with c/o lower extremity swelling. First encounter, chart reviewed. #LLE cellulits -improved -cont IV ancef #BLE edema -improved -cont IV lasix #BLE wounds -appreciate wound care -stable #SSS -stable #HX TIA -cont asa #Dispo -change to inpt status -requiring more IV abx and IV lasix -possible DC in am if cont to improve Subjective: Feeling well. No pain. No specific issues. Objective: Vital Signs Temp Pulse Resp BP Pulse Ox 36.4 C 61 17 120/59 L 92 07/28/18 12:00 07/28/18 12:00 07/28/18 12:00 07/28/18 12:00 07/28/18 12:00 Laboratory Results 07/28/18 05:01 07/28/18 05:01 07/27/18 07/28/18 07/29/18 05:59 05:59 05:59 Output Total 160 361 Balance -875 -327 - Physical Exam Constitutional: appears nourished, not in pain, chronically ill appearing Eyes: PERRL, anicteric sclera, EOMI Ears, Nose, Mouth, Throat: moist mucous membranes, hearing normal, ears appear normal Cardiovascular: edema, No JVD, No tachycardia Respiratory: no respiratory distress, no rales or rhonchi, reduced air movement Gastrointestinal: normoactive bowel sounds, No tenderness, No ascites Skin: warm, abrasion, erythema, No mottled Musculoskeletal: normal joint ROM, no joint effusions, generalized weakness Neurologic: AAOx3 Psychiatric: not anxious, not encephalopathic, thought process linear ICD10 Worksheet Patient Problems: Problems Problem Status Onset Left leg cellulitis Acute Sepsis Acute Complete heart block Acute Urinary tract infectious disease Active
--- NOTE | 2018-07-28 15:04 | PDMN ---
Medical Necessity [place] [facility] [place] A-2days: 88 yo w/ LLE cellulitis and edema , initially OBS but pt w/ recent hx group B strep bacteremia/cellulitis and sepsis, pt requiring more aggressive tx and additional MN for ongoing IV antibx ancef and IV Lasix. BC still pending. In addition, pt requires wound care and PT consults and treatment and cont TELE monitoring. Change to IP status per MD order 07/28/18 @ 1254. Hx HTN, complete heart block, s/p pacemaker, dCHF, AAA post graft, TIA
[2018-07-28] MEDS: ATORVASTATIN CALCIUM 40 MG TAB PO SCH (18:02)
[2018-07-28] MEDS: DOCUSATE SODIUM 100 MG CAP PO SCH (18:02)
[2018-07-28] MEDS: ASPIRIN 81 MG CHEWABLE TAB PO SCH (18:02)
[2018-07-29] MEDS: FUROSEMIDE 20 MG/2 ML VIAL IVP SCH ×2 (08:36→14:38)
[2018-07-29] MEDS: ENOXAPARIN 40 MG/0.4 ML SYR SC SCH (08:36)
[2018-07-29] MEDS: METOPROLOL TARTRATE 25 MG TAB PO SCH ×2 (08:36→22:10)
[2018-07-29] MEDS: DOXAZOSIN MESYLATE 4 MG TAB PO SCH (08:36)
--- NOTE | 2018-07-29 08:38 | HOSPPROG ---
Hospitalist Progress Note Assessment/Plan: Mr Mohan is an 88 y/o who presented to the ER with lower extremity swelling. First encounter, chart reviewed. *LLE cellulitis -Ancef -Blood cx show no growth -hx of bacteremia *lower ext wounds w associated edema -Lasix 20 mg IV bid, has been on 40 mg daily -better today per patient *CHF with bilateral edema and abdominal edema -continue iv lasix -reviewed his echo from april of this year; he had an EF of 50% * SSS s/p pacer *Hx of TIA -asa *bph -Doxazosin *plan: he will another midnight stay for one more day of IV abx, he has an appt at the wound clinic but not till September; will ask CM to see if he can get in sooner. Will check chemistry panel today and tomorrow while on IV Lasix. Subjective: Bertrand said he is feeling better today but is concerned about his lower ext wounds. Objective: Vital Signs Temp Pulse Resp BP Pulse Ox 36.3 C 60 20 145/67 H 97 07/29/18 07:21 07/29/18 07:21 07/29/18 07:21 07/29/18 07:21 07/29/18 07:21 07/28/18 07/29/18 07/30/18 05:59 05:59 05:59 Intake Total 50 Balance 50 - Physical Exam Constitutional: no apparent distress, appears nourished, not in pain Eyes: PERRL Ears, Nose, Mouth, Throat: hearing normal Cardiovascular: regular rate and rhythym Skin: warm, other (left lower ext with some redness, not warmth, has a dressing to the bilateral carrington, 1-2 +edema) Musculoskeletal: full muscle strength Neurologic: AAOx3 Psychiatric: interacting appropriately ICD10 Worksheet Patient Problems: Problems Problem Status Onset Urinary tract infectious disease Active Complete heart block Acute Left leg cellulitis Acute Sepsis Acute
[2018-07-29] MEDS: POTASSIUM CL 20 MEQ TAB PO SCH (08:39)
--- NOTE | 2018-07-29 10:17 | ASMTCMCOM ---
CM Note CM Note Notes: CM met w/ pt and for dispo planning. PT is recommending HC. Pt is agreeable to HC. Pt does not have a preference on HC agency. Referral made to [facility]. CM to follow. Plan: [facility]; PT, RN Date Signed: 07/29/2018 10:16 AM Electronically Signed By:IRENE Sauceda
[2018-07-29] MEDS: ATORVASTATIN CALCIUM 40 MG TAB PO SCH (18:05)
[2018-07-29] MEDS: DOCUSATE SODIUM 100 MG CAP PO SCH (18:05)
[2018-07-29] MEDS: ASPIRIN 81 MG CHEWABLE TAB PO SCH (18:05)
[2018-07-30] MEDS: DOXAZOSIN MESYLATE 4 MG TAB PO SCH (08:49)
[2018-07-30] MEDS: METOPROLOL TARTRATE 25 MG TAB PO SCH (08:49)
[2018-07-30] MEDS: POTASSIUM CL 20 MEQ TAB PO SCH (08:49)
[2018-07-30] MEDS: ENOXAPARIN 40 MG/0.4 ML SYR SC SCH (08:50)
[2018-07-30] MEDS ORDERED: FUROSEMIDE 40 MG TAB PO SCH (09:00)
[2018-07-30 11:22] VITALS: BP 136/67
--- NOTE | 2018-07-30 11:41 | HOSPPROG ---
Hospitalist Progress Note Assessment/Plan: Mr Mohan is an 88 y/o who presented to the ER with lower extremity swelling. First encounter, chart reviewed. *LLE cellulitis -Ancef -Blood cx show no growth -hx of bacteremia -almost resolved, dc home on Keflex *lower ext wounds w associated edema -much improved *CHF with bilateral edema and abdominal edema -will have him f/u with cariology -reviewed his echo from april of this year; he had an EF of 50% * SSS s/p pacer *Hx of TIA -asa *bph -Doxazosin *plan: dc today w home care Subjective: Bertrand is feeling much better today. Objective: Vital Signs Temp Pulse Resp BP Pulse Ox 36.4 C 66 24 H 136/67 H 91 L 07/30/18 11:18 07/30/18 11:18 07/30/18 11:18 07/30/18 11:18 07/30/18 11:18 Laboratory Results 07/30/18 04:23 07/29/18 07/30/18 07/31/18 05:59 05:59 05:59 Intake Total 50 200 50 Output Total 1075 Balance 50 -875 50 - Physical Exam Constitutional: no apparent distress, appears nourished, not in pain Eyes: PERRL Ears, Nose, Mouth, Throat: hearing normal Cardiovascular: regular rate and rhythym Respiratory: no respiratory distress Gastrointestinal: normoactive bowel sounds, soft, non-tender abdomen, other ( round) Skin: warm Musculoskeletal: generalized weakness Neurologic: AAOx3 Psychiatric: interacting appropriately ICD10 Worksheet Patient Problems: Problems Problem Status Onset Urinary tract infectious disease Active Complete heart block Acute Left leg cellulitis Acute Sepsis Acute
--- NOTE | 2018-07-30 11:48 | PDIAF ---
- Diagnosis Diagnosis: left lower ext cellulitis, chf Code Status: Full Code - Medication Management Discharge Medications: electronically signed and located in the Home Medication List. - Orders Services needed: Home Care, Registered Nurse, Physical Therapy, Occupational Therapy Home Care Face to Face: I certify that this patient was under my care and that I had the required [id number] encounter meeting the encounter requirements on the discharge day. My findings support the fact that the patient is homebound as defined in Home Care Face to Face Continued: CMS Chapter 7 Medicare Benefits Manual 30.1.1 , The condition of the patient is such that there exists a normal inability to leave home and consequently, leaving home would require a considerable and taxing effort. Diet Recommendation: no restrictions on diet Wound Care Instructions: Cleaned with ns and gauze. Silvasorb to wound bed. Covered with allevyn life. Instructed patient to keep area clean and covered with antibacterial ointement at home to reduce change of infection. Additional Instructions: start the Keflex this evening-prescription was sent to [facility] here in the hospital if you develop fever, chills; return to the ER Follow up w Francoise PRESTON-she works in cardiology-see in next 1-2 weeks you have an appointment scheduled at the wound clinic for next August 06 follow up as you have scheduled w Dr Gomez, she can refill your home medications recommending you get an OP sleep study - Follow Up Care Current Providers and Referrals: Francoise Gerard PA [Physician Admitting Interviewer] - Tram Gomez MD [Medical Doctor] - Lilo Peralta MD [Primary Care Provider] - As per Instructions
--- NOTE | 2018-07-30 11:53 | ASMTLACE ---
HAJAE Length of stay for Answers: 2 days current admission Acuity / Level of Answers: Yes Care: Did the patient have an inpatient admission? Comorbidities - select Answers: Cerebrovascular disease all that apply (CVA, TIA, aneurysms, vasc ular dementia) Congestive heart failure Other Notes: Cellulitis; HTN; HLD # of Emergency department Answers: 1-2 visits in the last 6 months Score: 10 Date Signed: 07/30/2018 11:52 AM Electronically Signed By:Aleyda Cruz RN
--- NOTE | 2018-07-30 11:58 | ASMTCMCOM ---
CM Note CM Note Notes: Pt changed his mind about home care agency, wants [facility]. CM contacted them and they are able to accept. DC Plan: Home care/[facility] (RN/PT) Date Signed: 07/30/2018 11:58 AM Electronically Signed By:Aleyda Cruz RN
--- NOTE | 2018-07-30 12:56 | GDS ---
DISCHARGE DIAGNOSES: 1. Left lower extremity cellulitis. 2. Lower extremity wounds with associated edema. 3. Congestive heart failure with bilateral edema and abdominal edema. 4. Sick sinus syndrome, status post pacemaker, history of transient ischemic attack. 5. Benign prostatic hypertrophy. HISTORY: Briefly, the patient is an 88-year-old male with a history of heart failure, as well as a h istory of cellulitis, bacteremia, who presented with worsening left leg pain. He was hospitalized in April, and at that time, was noted to be septic and bacteremic. At that time, he grew out group B strep bacteremia due to the cellulitis. He was discharged on penicillin to [facility]. He has been d oing overall well, but approximately a week ago, he had a 7-pound weight gain. His home Lasix was in creased from 40 to 80 daily, and he lost 7 pounds. Denies having any fever or rigors. He was admitt ed and treated with Ancef. It appeared that his infection was Staph in nature. He improved nicely d uring his stay. I suspect he has ongoing venous insufficiency and swelling causing some of his issue s. He will be discharged home today with home care. HOSPITAL COURSE: 1. Left lower extremity cellulitis, markedly better. His blood culture showed no growth. 2. Lower extremity wounds with associated edema. This is much improved. I suspect he has chronic v enous insufficiency. 3. Congestive heart failure. He does not appear to have any failure. He had an echo from April is year, which showed he had an EF of 50%. 4. Sick sinus syndrome with pacer, stable. 5. History of a TIA, on aspirin therapy. 6. BPH, on doxazosin. DISCHARGE CONDITION: Stable. Blood pressure is 136/67. Heart rate is 66. Respiratory rate of 24. O2 sats on room air 91%. Temperature is 36.4 Celsius. DISCHARGE MEDICATIONS: Please see the EMR. DISCHARGE INSTRUCTIONS: 1. Recommending that he see Francoise Gerard, physician practice assistant with Cardiology. He has seen her in the past. Recommend he see her in the next 1-2 weeks. He may need his Lasix dose increased. 2. To start his Keflex this evening. 3. To follow up with Dr. Gomez. 4. He has an outpatient wound care appointment for August 06. 5. Home Care will check on him daily. Also, wound care instructions have been written out. Greater than 30 minutes discharging and coordinating the patient's care. Copy requested to: Dr. Gomez /[id number]/MODL
--- NOTE | 2018-07-30 15:46 | ASDISCHSUM ---
Discharge Information Plan Status:Home with Home Health Medically Cleared to Leave: Discharge Date:07/30/2018 01:46 PM CM D/C Disposition:Home Health Service ADT D/C Disposition:Home Health Service Projected Discharge Date:07/29/2018 11:00 AM Transportation at D/C:Family Discharge Delay Reason: Follow-Up Date:07/29/2018 11:00 AM Discharge Slot: Final Diagnosis: Placement Information Referral Type:*Home Health Care Services Referral ID:[id number] Provider Name:[facility] Care Address 1:[address] Address 2: City:[place] Selection Factors: State:[place] Patient Contact Information Contact Name:JACINTO Relationship: Address:[address] Work Phone: [facility]:[place] Alternate Phone: [facility]/Zip Code:[place] [address] Email: Financial Information Financial Class:Medicare Primary Plan Desc:MEDICARE INPATIENT Primary Plan Number:[id number] Secondary Plan Desc:[facility] Secondary Plan Number:[id number] Assessment Information LACE LACE Length of stay for Answers: 2 days current admission Acuity / Level of Answers: Yes Care: Did the patient have an inpatient admission? Comorbidities - select Answers: Cerebrovascular disease all that apply (CVA, TIA, aneurysms, vasc ular dementia) Congestive heart failure Other Notes: Cellulitis; HTN; HLD # of Emergency department Answers: 1-2 visits in the last 6 months Score: 10 Date Signed: 07/30/2018 11:52 AM Electronically Signed By:Aleyda Cruz RN [facility] CM Progress Note CM Note CM Note Notes: CM spoke to RENATO Simms regarding d/c POC. Pt is a 88 y/o man admitted for bilateral pretibial cellulitis. PT and wound care has been ordered. Needs are TBD at this time. CM to follow. Plan: TBD Date Signed: 07/28/2018 10:08 AM Electronically Signed By:IRENE Sauceda [facility] CM Progress Note CM Note CM Note Notes: CM met w/ pt and for dispo planning. PT is recommending HC. Pt is agreeable to HC. Pt does not have a preference on HC agency. Referral made to [facility]. CM to follow. Plan: [facility]; PT, RN Date Signed: 07/29/2018 10:16 AM Electronically Signed By:IRENE Sauceda [facility] CM Progress Note CM Note CM Note Notes: Pt changed his mind about home care agency, wants [facility]. CM contacted them and they are able to accept. DC Plan: Home care/[facility] (RN/PT) Date Signed: 07/30/2018 11:58 AM Electronically Signed By:Aleyda Cruz RN Intervention Information Intervention Type:*ANDREW-Signed Date of Service:07/28/2018 11:00 AM Patient Type:Observation Staff Member:Aurelia Macdonald Hours: Discipline: Severity: Comment:
== END 2018-07-30 13:46 | disposition home health service (06) | DRG 603 ==
LOC: F3E 14:37 → OBSVTOIN 07-28 12:54
PROVIDERS: ADMIT Student in an Organized Health Care Education/Training Program; ATTEND Internal Medicine
DX: L03.116 Cellulitis of left lower limb (principal); I87.313 Chronic venous hypertension (idiopathic) with ulcer of bilateral lower extremity; L97.211 Non-pressure chronic ulcer of right calf limited to breakdown of skin; L97.221 Non-pressure chronic ulcer of left calf limited to breakdown of skin; I11.0 Hypertensive heart disease with heart failure; I50.32 Chronic diastolic (congestive) heart failure; Z95.0 Presence of cardiac pacemaker; E78.5 Hyperlipidemia, unspecified; N40.0 Benign prostatic hyperplasia without lower urinary tract symptoms; Z86.73 Personal history of transient ischemic attack (TIA), and cerebral infarction without residual deficits; Z79.82 Long term (current) use of aspirin
CPT/HCPCS: 96365; 97116-GP; 97161-GP; G0378; G8978-GP-CJ; G8979-GP-CI; J0690; J1650; J1940